=== PATIENT | female | born 1970 | race Caucasian/White ===

== ENCOUNTER 2017-03-08 22:34 | Inpatient (IN) ==
[2017-03-09 00:32] LABS: MANUAL DIFF NEEDED? NO
[2017-03-09 00:46] LABS: BASO% 0.6 % (0.0-0.8); EOS# 0.32 X1000 (0.0-0.7); EOS% 2.9 % (0.0-10.0); HEMATOCRIT 42.6 % (37.0-47.0); HEMOGLOBIN 13.9 g/dL (12.0-16.0); IMM GRAN# 0.02 X1000 (0.0-0.04); IMM GRAN% 0.2 % (0.0-0.5); LYMPH# 3.91 X1000 (1.2-3.4); LYMPH% 35.7 % (20.5-51.1); MCH 30.8 PG (27-31); MCHC 32.6 g/dL (33-37); MCV 94.5 FL (81-99); MONO# 0.89 X1000 (0.11-0.59); MONO% 8.1 % (1.7-9.3); MPV 11.2 FL (7.4-10.4); NEUT% 52.5 % (42.2-75.2); PLT 332 X1000 (130-400); RBC 4.51 XMIL (4.2-5.4)
[2017-03-09 00:58] LABS: INR 0.92 (0.86-1.15); PROTIME 12.7 Seconds (12.1-15.5)
[2017-03-09 01:10] LABS: AGAP 12; ALBUMIN 4.5 g/dL (3.5-5.0); ALKALINE PHOSPHATASE 91 U/L (32-104); BUN 6 mg/dL (8-22); CALCIUM 9.2 mg/dL (8.8-10.2); CHLORIDE 103 mmol/L (98-107); COSMO 274; GOT 37 U/L (10-30); GPT 23 U/L (10-36); MAGNESIUM 1.7 mg/dL (1.5-2.7); POTASSIUM 3.6 mmol/L (3.5-5.1); SODIUM 139 mmol/L (136-145); TCO2 25 mmol/L (25-35); TOTAL PROTEIN 7.3 g/dL (6.3-8.3)
[2017-03-09 01:15] LABS: BILIRUBIN URINE NEGATIVE (NEGATIVE); BLOOD URINE NEGATIVE (NEGATIVE); CLARITY CLEAR (CLEAR); COLOR YELLOW; GLUCOSE URINE NEGATIVE (NEGATIVE); LEUKOCYTES URINE NEGATIVE (NEGATIVE); NITRITE URINE NEGATIVE (NEGATIVE); PROTEIN URINE NEGATIVE (NEGATIVE); URINE SOURCE CLEAN CATCH; UROBILINOGEN URINE NORMAL
[2017-03-09 01:16] LABS: URINE CULTURE PL NEEDED? YES; URINE EPITHELIAL CELLS <10 /HPF (<10); URINE RBC <10 /HPF (<10); URINE WBC <10 /HPF (<10)
[2017-03-09 01:17] LABS: CK PROFILE 328 U/L (24-173)
[2017-03-09 01:18] LABS: UR AMPHETAMINES QUAL NONE DETECTED (NONE DETECT); UR BARBITUATES QUAL NONE DETECTED (NONE DETECT); UR BENZODIAZEPIN QUAL PRESUMPTIVE POSITIVE (NONE DETECT); UR CANNABINOIDS QUAL NONE DETECTED (NONE DETECT); UR COCAINE QUAL NONE DETECTED (NONE DETECT); UR MDMA QUAL NONE DETECTED (NONE DETECT); UR METHADONE QUAL NONE DETECTED (NONE DETECT); UR METHAMPHETAMINE QUAL NONE DETECTED (NONE DETECT); UR OPIATES QUAL NONE DETECTED (NONE DETECT); UR OXYCODONE QUAL NONE DETECTED (NONE DETECT); UR PCP QUAL NONE DETECTED (NONE DETECT); UR TCA QUAL NONE DETECTED (NONE DETECT)
[2017-03-09 02:02] LABS: CK INDEX 5.6 (0.0-2.5); CK-MB 18.27 ng/mL (0.0-5.0)
[2017-03-09] MEDS ORDERED: ZOFRAN IV PRN ×2 (02:42→16:16)
--- NOTE | 2017-03-09 02:53 | EKG Report ---
Test Performed on : 03/09/2017 00:19:51 AM Test Reason : CHEST PAIN Blood Pressure : / mmHG Vent. Rate : 067 BPM Atrial Rate : 067 BPM P-R Int : 154 ms QRS Dur : 092 ms QT Int : 398 ms P-R-T Axes : 052 043 081 degrees QTc Int : 420 ms Normal sinus rhythm. Normal ECG When compared with ECG of 14-MAY-2009 17:15, No significant change was found Unconfirmed Result
--- NOTE | 2017-03-09 03:02 | PROVIDER DOCUMENTATION ---
This chart was entered by Emily Terry Scribe, acting as scribe for Hector Link DO. HPI-Musculoskeletal Pain/Inj - GENERAL Chief Complaint: Generalized Pain Stated Complaint: WEAKNESS,ARM NUMBNESS/PAIN Time Seen by Provider: 03/09/17 00:04 Source: patient - HX OF PRESENT ILLNESS-MUSKULOSKELTAL Nature of Presenting Problem: 46 Yo F presents to the ER with the complain of generalized body pain X4 days. Pt also states numbness and pain to the R arm and R leg and CP. Denies any SOB. Quality of Pain: reports: other (generalized) Severity in ED: mild Onset/Duration: 4 days ago Timing: still present - FALL INJURY Location of Pain/Injury: reports: generalized (whole body) Pain Radiation: reports: arm(s) (R), legs (lower) (R) - LOWER EXTREMITY PAIN/INJURY Lower Extremities Pain: leg: right Associated Symptoms: reports: other (generalized pain) - UPPER EXTREMITY PAIN/INJURY Extremities Pain Location: arm: right Review of Systems - Adult - REVIEW OF SYSTEMS - ADULT Constitutional: denies: chills, fever Eyes: reports: no symptoms reported Ears, Nose, Mouth & Throat: denies: ear pain, throat pain Cardiovascular: reports: chest pain. denies: palpitations Respiratory: denies: cough, shortness of breath Gastrointestinal: denies: abdominal pain, nausea Genitourinary: reports: no symptoms reported Musculoskeletal: reports: see HPI, other (generalized body pain and chronic pain ) Integumentary: reports: no symptoms reported Neurological: reports: no symptoms reported Psychiatric: reports: no symptoms reported Endocrine: reports: no symptoms reported Hematologic/Lymphatic: reports: no symptoms reported Allergic/Immunologic: reports: no symptoms reported All Other Systems: Reviewed and Negative Past History - Adult - PAST MEDICAL HISTORY-ADULT Review of Records: reports: Old Records Reviewed, Nursing Assessment Review Major Childhood Illnesses: reports: denies history Cardiovascular: reports: denies history Respiratory: reports: denies history Gastrointestinal: reports: denies history Obstetrical/Gynecological: reports: uterine/ovarian cancer Genitourinary: reports: denies history Musculoskeletal: reports: chronic pain, intervertebral disc disease Neurological: reports: denies history Psychiatric: reports: anxiety Endocrine/Immune: reports: denies history Other Conditions: reports: denies history - PRIOR SURGERIES/PROCEDURES Surgical/Procedure History: reports: hysterectomy, tonsillectomy - PRIOR HOSPITALIZATIONS Prior Hospitalizations: reports: none - IMMUNIZATION STATUS Childhood Immunizations: UTD, See Nurse Assessment Flu Vaccine: See Nurse Assessment - FAMILY HISTORY Family History: reviewed, not pertinent - SOCIAL HISTORY Smoking: cigarettes, greater than 1 pack/day Provider spent 3-5 mins advising pt. on dangers of tobacco.: Discussed manners to quit use, and f/u contacts for add'l counseling. Physical Exam-Injury Related - Physical Exam-Injury Related Initial Vital Signs Reviewed: Yes General Appearance: appears well, alert Eyes: PERRL/EOMI, pink conjunctivae Head, Ears, Nose, Mouth & Throat: normal ENT inspection, TMs normal Neck: non-tender, full range of motion, supple Respiratory: no pleuratic chest pain, no respiratory distress Cardiovascular: normal peripheral pulses, regular rate, rhythm Back Exam: no CVA tenderness, no vertebral tenderness Integumentary: normal color, warm/dry Neurologic: grossly normal, no motor/sensory deficits Psych/Mental Status: normal mood/affect, normal thought content, normal thought process, oriented x 3 Progress - PLAN OF CARE/RESULTS Progress/Plan/Lab Results: Orders Category Date Time Status Admit - [facility] Routine AdmDCTranf 03/09/17 02:42 Ordered Activity - Strict Bedrest ORDERED Care 03/09/17 02:42 Inactive Call Admitting on Arrival AT ADMISSION Care 03/09/17 02:42 Inactive Cardiac Monitoring DIRECTED Care 03/09/17 00:05 Active Neurological Check Q4H Care 03/09/17 02:42 Active Saline Loc DIRECTED Care 03/09/17 02:42 Active Saline Loc NOW Care 03/09/17 00:05 Completed Vital Signs Order ARRIVAL TO ROOM Care 03/09/17 02:42 Active CHEST-2 VIEWS [RAD] Stat Exams 03/09/17 00:05 Completed HEAD W/O CONTRAST [CT] Stat Exams 03/09/17 00:06 Completed CBC WITH ELECTRONIC DIFF [HEME] Stat Lab 03/09/17 00:25 Completed CK PROFILE [SP CHEM] Stat Lab 03/09/17 00:25 Completed COMPREHENSIVE METABOLIC PANEL [CHEM] Stat Lab 03/09/17 00:25 Completed D-DIMER [address] [COAG] Stat Lab 03/09/17 00:25 Completed ETOH [ALCOHOL BLOOD] Stat Lab 03/09/17 00:25 Completed MAGNESIUM [CHEM] Stat Lab 03/09/17 00:25 Completed PRO B-NATRIURETIC PEPTIDE Stat Lab 03/09/17 00:25 Completed [address]IME WITH INR PL [COAG] Stat Lab 03/09/17 00:[address] [COAG] Stat Lab 03/09/17 00:25 Completed TROPONIN T Lab 03/09/17 05:35 Completed TROPONIN T Lab 03/09/17 13:10 Completed TROPONIN T Stat Lab 03/09/17 00:[address] W/POSS RFLX CULT [URINALYSIS] Stat Lab 03/09/17 00:25 Completed URINE CULTURE [RM] Routine Lab 03/09/17 01:16 Received URINE DRUG SCREEN [address] Stat Lab 03/09/17 00:25 Completed Ondansetron [Zofran] Med 03/09/17 02:42 Active 4 mg IV Q4H PRN PRN Oxygen Device Routine Oth 03/09/17 02:42 Completed Telemetry [OM.EQ] Routine Oth 03/09/17 02:42 Active Carotid Ultrasound Stat Ther 03/09/17 07:00 Completed EKG [EKG] Stat Ther 03/09/17 00:05 Draft Transfer/Admit Order [TRANSFER] Routine Transfer 03/09/17 02:44 Completed Result Diagrams: 03/09/17 00:25 03/09/17 00:25 - CT/MRI 1 CT Study: Head Impression: Normal CT Results: negative Head CT by Radiologist - CONSULTS/PCP/HOSPITALIST Notification #1 *Consult/PCP/Hospitalist*: Dr. Fisher Time Discussed: 02:41 Reason/Comments: discussed by Patient Departure - Departure Time of Disposition Decision: 02:41 DIAGNOSIS: Weakness Disposition: ADMITTED INPATIENT 09 Certified Medical Emergency: Emergent Condition: Stable This chart was documented by the indicated scribe, (Emily Terry Scribe) and accurately reflects the services I performed and decisions made by Nikolay hollingsworth Deepak K., DO, as attested by the provider's signature.
--- NOTE | 2017-03-09 09:32 | Diag Imaging Result Document ---
PROCEDURE NAME: HEAD W/O CONTRAST - 03/09/[address], 03/09/2017: A CT dose reduction protocol was used. COMPARISON: None. FINDINGS: The ventricles and sulci are normal in size and contour. There is no mass, hemorrhage, or evidence of acute ischemia. The bony calvaria is intact. The visualized paranasal sinuses and mastoid air cells are clear. IMPRESSION: Negative head CT. MTDD
--- NOTE | 2017-03-09 09:54 | Diag Imaging Result Document ---
PROCEDURE NAME: CERVICAL SPINE W/O CONTRAST - 03/09/2017 CT CERVICAL SPINE, 03/09/2017: A CT dose reduction protocol was used. COMPARISON: 07/21/2014. FINDINGS: Stable severe kyphotic malpositioning of the cervical spine. Stable severe multilevel degenerative disk disease, worst at C4-5, C5-6 and C6-7. Stable large disk bulge at C4-5 causing moderate central canal stenosis and some cord compression. No fracture or subluxation. IMPRESSION: Advanced cervical spondylosis and chronic malpositioning. No change from prior. [facility]
--- NOTE | 2017-03-09 11:27 | Diag Imaging Result Document ---
PROCEDURE NAME: CHEST-2 VIEWS - 03/09/2017 CHEST X-RAY 2 VIEWS, 03/09/2017: COMPARISON: None. FINDINGS: The lungs are normally expanded and clear. Heart size and mediastinal contours are normal. No pneumothorax or pleural effusion. IMPRESSION: Negative exam.
--- NOTE | 2017-03-09 12:16 | HISTORY AND PHYSICAL ---
CHIEF COMPLAINT: My right arm and right leg feel like they are numb and asleep. HISTORY OF PRESENT ILLNESS: This is a 46-year-old female with a prior history of degenerative disk disease, chronic neck and back pain, ovarian cancer, and tobacco use. She presented to the emergency room complaining of numbness and feeling like her right arm and right leg were asleep. The patient is very sleepy. It is difficult to engage in much conversation due to her being so sleepy. There is a family member at the bedside. So, history is taken from the old records as well as the family member assisting the patient. Evidently she fell at work within the last 4-5 days. She stated that she had left-sided pain but that over the last 3 days she began to have trouble with the right, having this numbness and tingling to her right arm and right leg. She said she had difficulty walking. At one time she said that she had to have assistance to walk into her job the last day that she worked. She was able to complete the 2 shifts that she was supposed to work this week and she stated she was able to do her job. She states that she has been told over the past 4-5 years that she has had significant disease in her spine especially her neck and that she needed a follow up, although she has never followed those instructions, stating she did not have the money nor the time to follow up. She did have a CT of the C-spine in July of 2014 which revealed extensive multilevel degenerative disk disease, most significant at C4-C5 where there is cord compression, although this is stable from a previous study of March 2014. She states at 1 time she was on Xanax and 2 other medications but she has not taken these in quite some time. I did ask her and the family member about her being so lethargic. Family member state that she has not been this way. She stated that one of friends gave her "a little orange piece of paper to put on my tongue and dissolve" because of her pain. This was sometime yesterday. I am unclear what relation it has to coming to the emergency room. CT of the head was performed which revealed no acute processes. Urine drug screen revealed benzodiazepines. PAST MEDICAL HISTORY: Uterine cancer, hypertension although she does not take medications, Crohn's, chronic back and neck pain. PAST SURGICAL HISTORY: Hysterectomy, tonsillectomy, and colon polyps removed. SOCIAL HISTORY: She smokes a pack of cigarettes a day. She denies alcohol or illicit drug use. She does have family members close that help assist in her care. ALLERGIES: Codeine, Toradol, Phenergan, and Ultram. HOME MEDICATIONS: Denies. REVIEW OF SYSTEMS: A 14 point review of systems is discussed with the patient with pertinent positives stated in the HPI. She denied chest pain, palpitations, syncope, dizziness, shortness of breath, cough, fever, chills, recent weight loss or weight gain, abdominal pain, nausea, vomiting, diarrhea, constipation, black or bloody vomitus, black or bloody stools, hematuria, dysuria. PHYSICAL EXAMINATION: GENERAL: This is a 46-year-old female who is lying in the bed, lethargic, in no distress. VITAL SIGNS: Blood pressure is 104/60 with a heart rate of 60, respirations 16 , temperature 97.9 degrees oral, with a room air saturation of 97%. HEENT: Head is normocephalic, atraumatic. Pupils are equal, round, react to light. EOMs are intact. NECK: Supple. Trachea midline. CARDIOVASCULAR: Regular rate and rhythm. S1, S2 appreciated. PULMONARY: Breath sounds are clear. No increased work of breathing noted. Chest does rise and fall symmetrically with respiration GASTROINTESTINAL: Abdomen is soft, nontender, nondistended. Bowel sounds in all 4 quadrants. BACK: No CVAT. No spine tenderness. EXTREMITIES: No clubbing or cyanosis. She does have some pretibial and pedal edema, trace. NEUROLOGIC: She is lethargic. She does wake to verbal stimuli as well as tactile stimuli. She is oriented to place, person, her birthday, although she does get the day and time of day confused. She has no facial droop. Forehead is spared. No tongue or uvula deviation. She has equal shoulder shrug. She has 5/5 muscle strength to left arm and left leg. She has 4/5 to right leg and 3/5 to right arm. [id number] is 4/5 on the left and 2/5 on the right. She states she is having trouble manipulating her right arm. DIAGNOSTICS: Labs: WBC is 10.9, with a hemoglobin 13.9, hematocrit 42.6, and platelets of 332,000. D-dimer is less than 0.22. Chemistry: Sodium is 139, potassium 3.6, BUN 6, creatinine 0.5, with a glucose of 74. CPK is 328 with a CK-MB of 18.27. Troponins are negative on multiple occasions. CT of the head reveals no acute processes. ASSESSMENT: 1. Right upper and lower extremity weakness. 2. Chronic back pain. 3. Known degenerative disk disease at C4-C5 with cord encroachment from a CT in 2013. 4. Rhabdomyolysis, mild. Presumed from a fall 3-4 days ago. 5. History of Crohn's. 6. Deep vein thrombosis prophylaxis. 7. Gastrointestinal prophylaxis. PLAN: She will be admitted to the hospital. We will repeat a CT scan of her cervical spine. At present she will remain NPO. We will continue with neuro checks. We will trend her CPK. For DVT prophylaxis will use SCDs as she has had a recent fall. At present, we will use Protonix to start with for GI prophylaxis. Further treatments pending hospital course. CT scan results were discussed with Dr Gillespie and Dr Villa. Dr Villa has been following the pt and states CT scan is stable at this time. Dictated by ELIAS Jain for Pan Fisher MD cc: ELIAS Jain MD [facility]
[2017-03-09] MEDS ORDERED: NS 1,000 ML IV SCH (12:46)
[2017-03-09] MEDS: NS 1,000 ML IV SCH (16:16)
[2017-03-09] MEDS ORDERED: TYLENOL PO PRN (16:16)
[2017-03-09] MEDS ORDERED: NICODERM PATCH ONE (17:04)
[2017-03-09] MEDS ORDERED: NICODERM PATCH TD ONE (17:23)
--- NOTE | 2017-03-09 17:53 | PROGRESS NOTE ---
DATE: 03/09/2017 SUBJECTIVE: She was admitted earlier this morning as noted in history of present illness. She was very somnolent, was difficult to arouse and keep awake. Currently, she is much more awake, alert. She is sitting up on the side of the bed. She admits to taking a friend's medication yesterday that was in some type of "strip form". She dissolved it on her tongue and had an empty flavor. She notes that helped her pain for several hours. Currently her pain is a little bit worse and it is back to its baseline. She notes she still smokes. Again, discussed with her the perils of smoking. She knows that she was told to follow up with her neck issue but she did not because she did not want to take off work. At this point, we will transfer her to the floor. We will use Solu-Medrol, as she certainly may have some mild cord compression. She is noted to have weak movement of her left hand with good movement of her left upper arm and forearm. She is still having some pain in her leg from her fall. She is much more awake, alert, and oriented. We will advance her diet. Recheck her labs in the a.m. We will get an MRI of her neck in the a.m. cc: Pan Fisher MD
[2017-03-09] MEDS: SOLU-MEDROL IV SCH (19:47)
[2017-03-09] MEDS: NORCO-7.5 PO PRN (22:47)
--- NOTE | 2017-03-10 02:45 | PROGRESS NOTE ---
DATE: 03/09/2017 ADDENDUM: The patient is threatening to just leave the hospital. Discussed with her that she certainly needs to take some IV fluid, some IV Solu-Medrol to see if we can alleviate some of her current neurologic symptoms in her right hand. Discussed with her that instead of going outside to smoke we certainly can try a nicotine patch. Patient is unfortunately adamant that the same nurse has been mean to her since she got here yesterday. The patient in the same room across the curtain from her is shaking her head in complete disagreement at that statement with Ms Langford that although that may be somewhat accurate that it would be impossible for the same nurse to have been mean to her since she got here yesterday as she arrived to the hospital on the 8th in the evening and is currently the 9th at 5 p.m. which means she has at least had 2 separate nurses and not the same 1 for the past 18+ hours. Did discuss with her that if she chooses to leave that would be against medical advice. Discussed her that she certainly needs an MRI on her neck to make sure that she does not have any further cord compression as she has failed to follow up in the past regarding this. If the MRI is stable then will consult physical therapy [facility]. cc: Pan Fisher MD
[2017-03-10] MEDS: SOLU-MEDROL IV SCH ×3 (06:07→21:40)
[2017-03-10] MEDS: NORCO-7.5 PO PRN ×3 (06:08→21:41)
[2017-03-10 07:01] LABS: HEMATOCRIT 38.9 % (37.0-47.0); HEMOGLOBIN 12.5 g/dL (12.0-16.0); MCH 30.7 PG (27-31); MCHC 32.1 g/dL (33-37); MCV 95.6 FL (81-99); MPV 11.6 FL (7.4-10.4); RBC 4.07 XMIL (4.2-5.4)
[2017-03-10 07:37] LABS: AGAP 12; ALBUMIN 3.8 g/dL (3.5-5.0); ALKALINE PHOSPHATASE 81 U/L (32-104); BUN 7 mg/dL (8-22); CALCIUM 8.8 mg/dL (8.8-10.2); CHLORIDE 105 mmol/L (98-107); CK PROFILE 125 U/L (24-173); COSMO 278; GOT 23 U/L (10-30); GPT 21 U/L (10-36); MAGNESIUM 1.5 mg/dL (1.5-2.7); POTASSIUM 3.3 mmol/L (3.5-5.1); SODIUM 138 mmol/L (136-145); TCO2 21 mmol/L (25-35); TOTAL PROTEIN 6.4 g/dL (6.3-8.3)
[2017-03-10] MEDS: NS 1,000 ML IV SCH (08:31)
[2017-03-10] MEDS: NICODERM PATCH TD SCH (13:32)
[2017-03-10] MEDS: XANAX PO SCH ×2 (13:32→21:41)
--- NOTE | 2017-03-10 15:14 | Diag Imaging Result Document ---
PROCEDURE NAME: MRI CERVICAL SPINE W/O CONTRAS - 03/10/2017 MRI OF THE CERVICAL SPINE: FINDINGS: There is degenerative disk disease and posterior disk bulge at the C4-5, 5-6, and 6-7 levels. There is no evidence of bone marrow edema. At the C2-3, level there is slight narrowing of the left foramen. At C3-4, there is apparent foraminal stenosis bilaterally. At C4-5, there is osteophyte formation which impinges on the cord producing a moderate to severe spinal stenosis. At the C5-6 level, there is mild spinal and bilateral foraminal stenosis. At C6-7, there may be mild foraminal stenosis, but there is no spinal stenosis. At C7-T1, there is no evidence of spinal stenosis or definite foraminal stenosis. IMPRESSION: Degenerative disk changes with multilevel foraminal and spinal stenosis, the latter at the C4-5 level.
--- NOTE | 2017-03-10 16:02 | Extremity Venous Study ---
PROCEDURE NAME: Carotid Ultrasound - 03/09/2017 CAROTID FLOW STUDIES: FINDINGS: There is some intimal thickening in the right carotid system. The peak systolic velocity in the right internal carotid artery is 121 cm/sec, and the peak diastolic velocity is 45 cm/sec. The right internal to common carotid artery systolic velocity ratio is 1.09. The peak velocity suggest 40%-59% stenosis in the right internal carotid artery. The systolic velocity ratios suggests less than 40% stenosis in the right internal carotid artery. There is some intimal thickening in the left carotid system. Maximum systolic velocity in the left internal carotid artery is 119 cm/sec, maximal diastolic velocity is 44 cm/sec. The left internal to common carotid artery ratio is 1.18. The peak velocity suggest 40%-59% stenosis in the left internal carotid artery. The systolic velocity ratio suggest less than 40% stenosis in the left internal carotid artery. The bilateral vertebral arteries demonstrate antegrade flow. IMPRESSION: Equivocal findings of 40%-59% stenosis in the bilateral internal carotid arteries as described above. There is no evidence of hemodynamically significant stenosis in the right nor the left internal carotid artery.
[2017-03-11] MEDS: SOLU-MEDROL IV SCH ×3 (00:37→09:12)
[2017-03-11] MEDS: NORCO-7.5 PO PRN ×3 (02:46→14:04)
[2017-03-11] MEDS: XANAX PO SCH ×2 (06:08→14:04)
[2017-03-11] MEDS: NICODERM PATCH TD SCH (09:12)
--- NOTE | 2017-03-11 09:14 | PROGRESS NOTE ---
DATE: 03/10/2017 SUBJECTIVE: The patient is still having some pain and swelling in her right hand. Denies any other numbness anywhere else. Denies any nausea or vomiting. Denies any chest pain. Denies any dysuria or frequency. Denies any hesitancy. Denies any headaches or blurry vision. OBJECTIVE: Vital Signs: Reviewed. Temperature 98, pulse 77, respiratory rate 18, BP 132/84, sat 99% on room air. General: Patient is awake, alert, oriented. She is in no current respiratory distress. HEENT: Normocephalic. Neck: Supple. Cardiovascular: Regular rate. Chest: Relatively clear. Abdomen: Soft. Extremities: She is noted to move all 4 extremities well, although, she has minimal to no movement of her right hand. She has full movement of her right upper arm, right forearm, right elbow, and can move her wrist to some degree. LABS: Potassium 3.3. Glucose 184. ASSESSMENT: 1. Leukocytosis, resolved. WBCs 10.9 on admit, currently 7.17. 2. Hypokalemia. 3. Mild hyperglycemia. 4. Elevated CPK, currently back to normal at 125. 5. Elevated TSH. ASSESSMENT: 1. Weakness of her right hand. This certainly appears to be more secondary to trauma and edema, rather than from an acute stroke. 2. Chronic back pain. 3. Known degenerative felix disease with C4-C5 foraminal and spinal stenosis. 4. Known history of Crohn's. 5. Rhabdomyolysis, resolved. PLAN: We will check an MRI of her neck today to ascertain if she has any spinal cord compression that could be causing the symptoms. 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 Discussed with patient again the perils smoking, as well as, the ways to stop. Hopefully, patient can be discharged home in the next 1 to 2 days with an outpatient rehab. cc: Pan Fisher MD
[2017-03-11 15:37] VITALS: BP 151/84
[2017-03-11] MEDS ORDERED: NEURONTIN PO SCH (17:00)
--- NOTE | 2017-03-11 18:52 | DISCHARGE SUMMARY ---
ADMISSION DATE: 03/09/2017 DISCHARGE DATE: 03/11/2017 ADMISSION DIAGNOSES: 1. Right upper and lower extremity secondary to cervical radiculomyelopathy. 2. Chronic back pain. 3. Known degenerative disc disease at C4-5 with cord encroachment on a CT in 2013. 4. Mild rhabdomyolysis presumed to be from a fall 3-4 days prior to arriving. DISCHARGE DIAGNOSES: 1. Weakness of right hand secondary to trauma. 2. Chronic back pain. 3. Known degenerative disc disease with C4-5 foraminal and spinal stenosis. 4. Rhabdomyolysis, resolved. SUMMARY OF FINDINGS: This is a 46-year-old female who presented to the emergency room complaining of numbness and feeling like her right arm and right leg were asleep. She was difficult to engage in a conversation due to being so sleepy. History was taken from old records and family member assisting the patient. She evidently fell at work 4-5 days prior to arriving. She stated that she had left-sided pain but that over the last 3 days she began to have trouble with the right having numbness and tingling in her right arm and right leg, and difficulty walking. She states that she had to have assistance to walk into her job the last day that she worked. She has known multilevel degenerative disc disease most significant at C4-5 where there is some cord compression. This is stable from a previous study of March 2014. For her lethargy she states, one of her friends had given her "a little orange piece of paper" to put on her tongue and dissolve because of her pain, and that was given to her on the day prior to arrival which is most likely what caused her lethargy, and her urine drug screen was positive for benzodiazepines. She was admitted. We did serial neuro checks. We did a cervical spine MRI yesterday that showed degenerative disc changes with multilevel foraminal and spinal stenosis, the latter at the C4-5 level and again this has been present since 2013. It is felt today that she can safely be discharged home. DISCHARGE MEDICATIONS: 1. Decadron 4 mg p.o. b.i.d. #10 with no refills. 2. Xanax 0.5 mg p.o. q.8 hours #15 with no refills. 3. Nicotine patch daily #30 with no refills. 4. Gabapentin 100 mg p.o. t.i.d. #90 with no refills. FOLLOWUP: She will need to follow up with Neurosurgery in [place]. Discharge instructions were reviewed with the patient and she verbalized understanding. DISCHARGE TIME: 35 minutes. Dictated by ELIAS Lentz for Joel Pruitt MD cc: ELIAS Lentz MD [facility]
[2017-03-11] MEDS ORDERED: DECADRON PO SCH (21:00)
== END 2017-03-11 16:35 | disposition home or self-care (01) ==
LOC: P.ED 22:34 → SUATTDRO 03-09 04:54 → P.EDIPHOLD 03-09 04:54 → P.ICU 03-09 15:19 → P.EDIPHOLD 03-09 16:50 → P.MEDSURG 03-09 18:41
PROVIDERS: ATTEND Internal Medicine

== ENCOUNTER 2017-05-23 15:03 | Inpatient (IN) ==
--- NOTE | 2017-05-23 16:08 | PROVIDER DOCUMENTATION ---
HPI-Head Injury - General Chief Complaint: Headache Stated Complaint: NICHOLAS,VISION BAD Time Seen by Provider: 05/23/17 15:26 Source: patient Allergies/Adverse Reactions: Patient Allergies Allergy/AdvReac Type Severity Reaction Status Date / Time codeine Allergy Mild ITCHING Verified 05/23/17 16:58 ketorolac tromethamine * Allergy Mild ITCHING Verified 05/23/17 16:58 [From Toradol] promethazine HCl * Allergy Mild ITCHING Verified 05/23/17 16:58 [From Phenergan] tramadol HCl * [From Ultram] Allergy Mild ITCHING Verified 05/23/17 16:58 Home Medications: Home Medication List Medication Instructions Recorded Confirmed Last Taken Type Alprazolam [Xanax] 0.5 mg PO Q8H #15 tablet 03/11/17 06/01/17 05/22/17 12:00 Rx ATORVAstatin [Lipitor] 40 mg PO QHS #30 tablet 05/29/17 06/01/17 Unknown Rx Clopidogrel [Plavix] 75 mg PO DAILY #30 tablet 05/29/17 06/01/17 Unknown Rx Hydrocodone/APAP 5 mg/325 mg 1 each PO Q4H PRN #30 tablet 05/29/17 06/01/17 Unknown Rx [[place]-5] Amlodipine [Norvasc] 5 mg PO DAILY #30 tablet 06/02/17 Unknown Rx - History of Present Illness-Head Injury Nature of Presenting Problem: 47 y/o WF presents to the ED with c/o NICHOLAS, head injury, vision changes x 2 days. Pt states fell and hit her L frontal lobe on a dresser 2 nights ago with no LOC, but states that she was disoriented for 20 minutes. States NICHOLAS worse yesterday, so she was seen at [facility] and diagnosed with CVA, but prior to transport to higher care facility, signed an AMA to go home. States vision is blurry in both eyes, worse on L. Denies any other sxs. Review of Systems - Adult - REVIEW OF SYSTEMS - ADULT Constitutional: reports: no symptoms reported. denies: chills, fever Eyes: reports: see HPI, blurred vision. denies: double vision Ears, Nose, Mouth & Throat: reports: no symptoms reported. denies: ear pain, nose pain Cardiovascular: reports: no symptoms reported. denies: chest pain, palpitations Respiratory: reports: no symptoms reported. denies: dyspnea on exertion, shortness of breath Gastrointestinal: reports: no symptoms reported. denies: nausea, vomiting Genitourinary: reports: no symptoms reported. denies: dysuria, frequency Musculoskeletal: reports: no symptoms reported. denies: joint pain, joint swelling Integumentary: reports: no symptoms reported. denies: nail changes, rash Neurological: reports: headache/migraines. denies: numbness, paresthesia Psychiatric: reports: no symptoms reported Endocrine: reports: no symptoms reported. denies: cold intolerance, heat intolerance Hematologic/Lymphatic: reports: no symptoms reported. denies: easy bruising, prolonged bleeding Allergic/Immunologic: reports: no symptoms reported All Other Systems: Reviewed and Negative Past History - Adult - PAST MEDICAL HISTORY-ADULT Review of Records: reports: Nursing Assessment Review, Medications Reviewed Major Childhood Illnesses: reports: denies history Cardiovascular: reports: denies history Respiratory: reports: denies history Gastrointestinal: reports: denies history Obstetrical/Gynecological: reports: uterine/ovarian cancer Genitourinary: reports: denies history Musculoskeletal: reports: chronic pain, intervertebral disc disease Neurological: reports: denies history Psychiatric: reports: anxiety Endocrine/Immune: reports: denies history Other Conditions: reports: denies history - PRIOR SURGERIES/PROCEDURES Surgical/Procedure History: reports: hysterectomy, tonsillectomy - PRIOR HOSPITALIZATIONS Prior Hospitalizations: reports: none - IMMUNIZATION STATUS Childhood Immunizations: UTD, See Nurse Assessment Flu Vaccine: See Nurse Assessment - FAMILY HISTORY Family History: reviewed, not pertinent - SOCIAL HISTORY Smoking: cigarettes, greater than 1 pack/day Provider spent 3-5 mins advising pt. on dangers of tobacco.: Discussed manners to quit use, and f/u contacts for add'l counseling. Physical Exam- Neurological - Physical Exam-Neuro Initial Vital Signs Reviewed: Yes General Appearance: alert, mild distress Eye Exam: bilateral eye: normal inspection, PERRL, abnormal EOM (pt won't follow finger) HENMT: normocephalic/atraumatic Head Injury: no evidence of injury Neck: supple, normal inspection. negative: carotid bruit Respiratory: lungs clear, normal breath sounds. negative: crackles, rales, rhonchi, stridor, wheezing Cardiovascular: regular rate, rhythm. negative: bradycardia, tachycardia Extremity: normal range of motion latex spooler Exam: normal hearing, normal speech, PERRL. negative: abnormal eye position , abnormal pupil position, abnormal speech, facial asymmetry, facial droop, facial paresthesias, facial weakness, hearing deficit (R), hearing deficit (L), tongue deviation to R, tongue deviation to L Motor/Sensory: negative: weak motor strength RUE, weak motor strength LUE, weak motor strength RLE, weak motor strength LLE Neurologic: abnormal latex spooler II-XII (EOM not able to be evaluated). negative: aphasia, facial droop, focal weakness, motor weakness, sensory deficit Integumentary: normal color Psych/Mental Status: normal mood/affect, oriented x 3 Progress - PLAN OF CARE/RESULTS Progress/Plan/Lab Results: Orders Category [facility] Routine AdmDCTranf 05/23/17 18:39 Ordered Activity - Up with Assistance ORDERED Care 05/23/17 18:39 Active Intake and Output-Strict ORDERED Care 05/23/17 18:39 Active Nursing- MD Consult Request ROUTINE Care 05/23/17 18:45 Completed Vital Signs Order Q 8-HR ASSESS Care 05/23/17 18:39 Active Z-Document. for Tele Applied ORDERED Care 05/23/17 18:39 Completed Physician/Provider Consults Routine Cons 05/26/17 07:00 Ordered HEAD/C-SPINE W/O CONTRAST [CT] Stat Exams 05/23/17 15:59 Completed ALCOHOL BLOOD Stat Lab 05/23/17 16:43 Completed CBC WITH DIFF [HEME] Routine Lab 05/24/17 06:25 Completed CBC WITH ELECTRONIC DIFF [HEME] Stat Lab 05/23/17 16:43 Completed CK PROFILE [SP CHEM] Stat Lab 05/23/17 16:43 Completed COMPREHENSIVE METABOLIC PANEL [CHEM] Stat Lab 05/23/17 16:43 Completed COMPREHENSIVE METABOLIC PANEL [CHEM] Stat Lab 05/24/17 06:25 Completed MAGNESIUM [CHEM] Routine Lab 05/24/17 06:25 Completed PROTIME WITH INR [COAG] Stat Lab 05/23/17 16:43 Completed PTT [COAG] Stat Lab 05/23/17 16:43 Completed TROPONIN T Routine Lab 05/24/17 06:25 Completed TROPONIN T Stat Lab 05/23/17 16:43 Completed TSH Routine Lab 05/24/17 06:25 Completed URINALYSIS W/POSS RFLX CULT-1 [URINALYSIS] Stat Lab 05/23/17 16:43 Completed URINE DRUG SCREEN Stat Lab 05/23/17 16:43 Completed ATORVAstatin [Lipitor] Med 05/23/17 21:00 Discontinued 40 mg PO QHS Acetaminophen [Tylenol] Med 05/23/17 18:39 Discontinued 650 mg PO Q6H PRN PRN Alprazolam [Xanax] Med 05/23/17 21:35 Discontinued 0.5 mg PO Q8H Aspirin Med 05/24/17 09:00 Discontinued 81 mg PO DAILY Clopidogrel [Plavix] Med 05/23/17 18:42 Discontinued 75 mg PO NOW ONE LISINOpril [Prinivil] Med 05/23/17 21:35 Discontinued 20 mg PO HS Ondansetron [Zofran] Med 05/23/17 18:39 Discontinued 4 mg IV Q4H PRN PRN Carotid Ultrasound Routine Ther 05/23/17 18:39 Completed Echo Spec/Color Dop W/O Contra Routine Ther 05/23/17 18:39 Completed Physical Therapy Eval/Treatment [OM.PT] Routine Ther 05/23/17 18:39 Active Transfer/Admit Order [TRANSFER] Routine Transfer 05/23/17 18:38 Completed Discussed pt with Dr. Harry; Dr. Harry at bedside and agrees with consult to stroke Result Diagrams: 05/25/17 06:31 05/26/17 06:21 - CT/MRI 1 CT Study: Cervical Spine, Head Impression: Discussed w/Radiology (Dr. Daugherty called at 1702 hours with report of recent R occipital lobe CVA- approximately 24-48 hours old.) - CONSULTS/PCP/HOSPITALIST Notification #1 *Consult/PCP/Hospitalist*: [facility] Time Discussed: 17:19 Reason/Comments: R occipital lobe Consult Disposition: other (will have neuro call back) #2 Consult: Dr. [facility] Time Discussed: 17:31 Reason/Comments: recent R occipital CVA Consult Disposition: other (admit to -[facility] and get carotid doppler, lipid profile. Start ASA and lovenox; do not start TPA.) #3 Consult: [facility] Time Discussed: 17:43 Reason/Comments: R occipital CVA Consult Disposition: Admit Departure - Departure Date of Disposition Decision: 05/23/17 Time of Disposition Decision: 17:17 DIAGNOSIS: CVA (cerebral vascular accident) Qualifiers: CVA mechanism: unspecified Qualified Code(s): I63.9 - Cerebral infarction, unspecified Disposition: ADMITTED INPATIENT 09 Certified Medical Emergency: Emergent Condition: Stable - Critical Care Note This patient required my direct & personal management of CC.: No Attestation - Physician/ VIKTOR Attestation Patient care was provided by Advanced Practice Provider:: Yes Advanced Practice Provider:: Krissy Leyva Advanced Practice Provider documentation review:: The Mid-level provider documentation, treatment plan and medical decision making was reviewed by the physician who agrees with all treatment and medical decision making by the MLP.
[2017-05-23 16:55] LABS: MANUAL DIFF NEEDED? NO; URINE CULTURE NEEDED? NO; URINE MICRO REVIEW NEEDED? NO; URINE SOURCE CLEAN CATCH
[2017-05-23 17:00] LABS: BASO% 0.5 % (0.0-0.8); EOS# 0.25 X1000 (0.0-0.7); EOS% 2.7 % (0.0-10.0); HEMATOCRIT 42.6 % (37.0-47.0); HEMOGLOBIN 14.2 g/dL (12.0-16.0); LYMPH% 39.4 % (20.5-51.1); MCH 31.1 PG (27-31); MCHC 33.3 g/dL (33-37); MCV 93.2 FL (81-99); MONO# 0.61 X1000 (0.11-0.59); MONO% 6.5 % (1.7-9.3); MPV 11.1 FL (7.4-10.4); NEUT% 50.9 % (42.2-75.2); PLT 342 X1000 (130-400); RBC 4.57 XMIL (4.2-5.4)
[2017-05-23 17:01] LABS: BILIRUBIN URINE NEGATIVE (NEGATIVE); BLOOD URINE NEGATIVE (NEGATIVE); COLOR STRAW; GLUCOSE URINE NEGATIVE (NEGATIVE); LEUKOCYTES URINE NEGATIVE (NEGATIVE); NITRITE URINE NEGATIVE (NEGATIVE); PH URINE 6.5; PROTEIN URINE NEGATIVE (NEGATIVE); SP GRAVITY URINE 1.001; TURBIDITY URINE CLEAR (CLEAR); UROBILINOGEN URINE NORMAL (NORMAL)
--- NOTE | 2017-05-23 17:01 | Diag Imaging Result Doc PS360 ---
HEAD/C-SPINE W/O CONTRAST - 05/23/2017 INDICATION: NICHOLAS, vision changes, head injury TECHNIQUE: A CT dose reduction protocol was used. COMPARISON: 03/09/2017 FINDINGS: Head CT: There is a well-defined hypodensity of the medial and posterior right occipital lobe. No mass effect or hemorrhage. No other changes from prior. Cervical spine: There is stable reversal of the normal cervical lordosis and stable multilevel degenerative disc disease. No fracture or subluxation. No changes from prior. IMPRESSION: 1. Recent infarction in the right occipital lobe, in the posterior cerebral artery territory. 2. Advanced degeneration of the cervical spine stable from prior. 3. Findings were immediately called to the patient's healthcare provider. Electronically signed by Neil Daugherty 05/23/2017 4:58 PM
[2017-05-23 17:03] LABS: UR EPITHELIAL CELLS <10 /HPF (<10); URINE BACTERIA NEGATIVE /HPF; URINE RBC <10 /HPF (<10); URINE WBC <10 /HPF (<10)
[2017-05-23 17:10] LABS: INR 1.01; PROTIME 10.6 Seconds (9.2-11.7); PTT 26.8 Seconds (22.0-36.0)
[2017-05-23 17:24] LABS: AGAP 12; ALBUMIN 4.2 g/dL (3.5-5.0); ALKALINE PHOSPHATASE 96 U/L (32-104); BUN 4 mg/dL (8-22); CALCIUM 9.3 mg/dL (8.8-10.2); CHLORIDE 105 mmol/L (98-107); CK PROFILE 304 U/L (24-173); COSMO 283; GOT 17 U/L (10-30); GPT 10 U/L (10-36); SODIUM 144 mmol/L (136-145); TCO2 27 mmol/L (25-35); TOTAL BILIRUBIN < 0.10 mg/dL (0.20-1.00); TOTAL PROTEIN 7.1 g/dL (6.3-8.3)
[2017-05-23 17:35] LABS: UR AMPHETAMINES QUAL NONE DETECTED (NONE DETECT); UR BARBITUATES QUAL NONE DETECTED (NONE DETECT); UR BENZODIAZEPIN QUAL PRESUMPTIVE POSITIVE (NONE DETECT); UR CANNABINOIDS QUAL NONE DETECTED (NONE DETECT); UR COCAINE QUAL NONE DETECTED (NONE DETECT); UR METHADONE QUAL NONE DETECTED (NONE DETECT); UR OPIATES QUAL NONE DETECTED (NONE DETECT); UR OXYCODONE QUAL NONE DETECTED (NONE DETECT); UR PCP QUAL NONE DETECTED (NONE DETECT)
[2017-05-23 17:38] LABS: CK INDEX 2.7 (0.0-2.5); CK-MB 8.28 ng/mL (0.0-5.0)
[2017-05-23] MEDS ORDERED: PLAVIX PO ONE (18:42)
--- NOTE | 2017-05-23 20:26 | HISTORY AND PHYSICAL ---
CHIEF COMPLAINT: Right hand weakness and visual problems. HISTORY OF PRESENT ILLNESS: A 47-year-old female with a past medical history of uterine cancer, hypertension, Crohn's, chronic back pain and neck pain discharged from another hospital, [facility] secondary to right hand weakness secondary to a fall, probably history of TIA, ovarian cancer, tobacco abuse, came to the emergency department today because of worsening of symptoms. As per the patient she went to the emergency department last Friday and she also states that she had a fall last Friday. She is complaining of headache, visual changes for the past 2 days. Apparently, also she fell and hit her forehead on a dresser a couple days ago and as per the patient, she was disoriented for about 20 minutes after that. Apparently she went to the emergency department at [place] and she was diagnosed with CVA but prior to transport to higher care facility she signed AMA and went home. This patient has blurry vision in both eyes and is worse on the left side. We did a CT scan of the head today 05/23/2017 that showed a recent infarction in the right occipital area, in the posterior cerebral artery territory. This patient will be admitted for monitoring. We will consult Neurology department. We will ask for an MRI of the head, echocardiogram and carotic ultrasound. We will monitor the blood pressure and we will put this patient on statins, aspirin and Plavix. PAST MEDICAL HISTORY: Ovarian cancer, hypertension, Crohn disease, chronic back and neck pain, apparently rhabdomyolysis, degenerative disease at the level of C4-C5. REVIEW OF SYSTEMS: All negative except as per HPI. PAST SURGICAL HISTORY: Hysterectomy, tonsillectomy and colon polyps removed. ALLERGIES: Codeine, Toradol, Phenergan and Ultram. SOCIAL HISTORY: She is still smoking but denies alcohol or drugs. HOME MEDICATION: She was discharged 2 months ago with Xanax 0.5 mg p.o. q.8 hours and gabapentin 100 mg p.o. t.i.d. PHYSICAL EXAM: VITAL SIGNS: Pulse 57, respiratory rate 20, blood pressure 141/81, oxygen saturation 99 on room air. HEENT: Head normocephalic. No trauma. PERRLA. NECK: Supple. No JVD. No masses. Central trachea. CHEST: Clear to auscultation. No wheezing. No rales. CARDIOVASCULAR: RRR. No murmurs. EXTREMITIES: No edema. No clubbing. No cyanosis. NEUROLOGICAL: The patient is alert and oriented x3. She has right hand weakness around 4/5. She is able to see and follow my fingers with both eyes and read letters at distance. But as per the patient, she sees blurry. LABORATORY: WBC 9.4, hemoglobin 14.2, hematocrit 42.6, platelets 342,000. Sodium 144, potassium 4, chloride 105, bicarbonate 27, BUN 4, creatinine 0.7, glucose 83, calcium 9.3, AST 17, ALT 10, alkaline phosphatase 96. ASSESSMENT AND PLAN: 1. Right occipital lobe stroke. We will put this patient on aspirin, Plavix and statins. We will monitor this patient with telemetry. We will order also an MRI, a carotid ultrasound and an echocardiogram and neurology has been consulted. 2. Chronic back pain. We will put this patient on pain medications p.r.n. 3. History of ovarian cancer. Aware. 4. Hypertension. I will put this patient on lisinopril 20 and will monitor the blood pressure. 5. Anxiety. I will continue with her Xanax 0.5 mg p.o. q.8 hours. 6. History of Crohn disease. Aware. 7. Tobacco abuse. This patient has been highly advised against tobacco use. I will continue with daily cessation education. 8. Deep vein thrombosis prophylaxis with Lovenox. cc: Donn Montesinos MD
[2017-05-23] MEDS ORDERED: PRINIVIL PO SCH (21:35)
[2017-05-23] MEDS: LIPITOR PO SCH (22:19)
[2017-05-23] MEDS: XANAX PO SCH (22:21)
[2017-05-24] MEDS: TYLENOL PO PRN ×2 (01:39→22:25)
[2017-05-24 06:43] LABS: MANUAL DIFF NEEDED? NO
[2017-05-24] MEDS: XANAX PO SCH ×2 (06:46→18:03)
[2017-05-24 06:50] LABS: BASO% 0.6 % (0.0-0.8); EOS# 0.19 X1000 (0.0-0.7); EOS% 2.7 % (0.0-10.0); HEMATOCRIT 40.4 % (37.0-47.0); HEMOGLOBIN 13.4 g/dL (12.0-16.0); LYMPH# 3.22 X1000 (1.2-3.4); LYMPH% 46.1 % (20.5-51.1); MCH 31.1 PG (27-31); MCHC 33.2 g/dL (33-37); MCV 93.7 FL (81-99); MONO# 0.52 X1000 (0.11-0.59); MONO% 7.4 % (1.7-9.3); NEUT% 43.2 % (42.2-75.2); PLT 347 X1000 (130-400); RBC 4.31 XMIL (4.2-5.4)
[2017-05-24 07:08] LABS: AGAP 12; ALBUMIN 3.6 g/dL (3.5-5.0); ALKALINE PHOSPHATASE 86 U/L (32-104); BUN 6 mg/dL (8-22); CALCIUM 8.9 mg/dL (8.8-10.2); CHLORIDE 109 mmol/L (98-107); COSMO 287; GOT 16 U/L (10-30); GPT 7 U/L (10-36); MAGNESIUM 1.8 mg/dL (1.5-2.7); POTASSIUM 3.6 mmol/L (3.5-5.1); SODIUM 146 mmol/L (136-145); TCO2 25 mmol/L (25-35); TOTAL BILIRUBIN 0.18 mg/dL (0.20-1.00); TOTAL PROTEIN 6.4 g/dL (6.3-8.3)
[2017-05-24] MEDS: ASPIRIN PO SCH (10:20)
[2017-05-24] MEDS: NICODERM PATCH TD SCH (12:40)
--- NOTE | 2017-05-24 12:59 | PROGRESS NOTE ---
DATE: 05/24/2017 SUBJECTIVE: This patient states that she is feeling about the same. In my physical, I do not see any big changes. She is a little bit somnolent but this is likely secondary to medications. She denies nausea, vomiting, diarrhea, constipation. No chest pain. No shortness of breath. OBJECTIVE: Vital Signs: Temperature 97.8 degrees, pulse 47, respiratory rate 13 blood pressure 90/50. Oxygen saturation 96 on room air. HEENT: Head normocephalic. No trauma. PERRLA. Neck: Supple. No JVD. No masses. Central trachea. Chest: Clear to auscultation. No wheezing. No rales. Cardiovascular: RRR, bradycardic. Abdomen: Soft, nontender, nondistended. No hepatosplenomegaly. Extremities: No edema. No clubbing. No cyanosis. Neurological: The patient is alert and oriented x3. No focal neurological deficits. LABORATORY: WBC 6.9, hemoglobin 13.4, hematocrit 40.4, platelet 347,000. Sodium 146, potassium 3.6, chloride 109, bicarbonate 25, BUN 6, creatinine 0.6, glucose 86, calcium 8.9, magnesium 1.8. ASSESSMENT AND PLAN: 1. Right occipital lobe stroke. I will continue with the same management for now. She is on aspirin, Plavix and statins. I will stop the blood pressure medication because her blood pressure has been running low. 2. Chronic back pain. Continue with pain medication p.r.n. 3. History of ovarian cancer. Aware. 4. Hypertension. I removed her lisinopril because this patient's blood pressure has been low. We will monitor. 5. Bradycardia without symptoms. We will monitor. 6. Anxiety. Continue with Xanax but now twice a day. 7. History of Crohn disease. Aware. 8. Tobacco abuse. This patient has been highly advised against tobacco abuse. I will continue with daily cessation education. I will use a nicotine patch today. 9. Deep vein thrombosis prophylaxis with Lovenox. cc: Donn Montesinos MD
--- NOTE | 2017-05-24 17:41 | ECHO REPORT ---
ORDER DATE: 05/23/2017 INTERPRETING PHYSICIAN: Dr. Marina REQUESTING PHYSICIAN: CLINICAL INDICATIONS: A 47-year-old female with uterine cancer, tobacco abuse, hypertension, stroke. M-MODE MEASUREMENTS: Right ventricle: 3.1 cm. Left ventricle end diastole: 4.6 cm. Left ventricle end systole: 2.8 cm. Posterior wall: 0.9 cm. Interventricular septum: 0.9 cm. Left atrium: 3.5 cm. Aortic root: 2.9 cm. SUMMARY OF 2-DIMENSIONAL IMAGING: The left ventricular function is normal. Ejection fraction 75%. The ventricular chamber is mildly enlarged. The right ventricle is also at the upper limits of normal. The aortic valve looks normal. Color flow mapping unremarkable. The mitral valve looks normal. Color flow mapping indicates a mild degree of regurgitation. Pulse wave Doppler of mitral inflow is normal. Tissue Doppler of septal and lateral mitral annulus averages 14 cm per second. Pulmonary venous flow is normal. There is no diastolic dysfunction. The left atrium is probably mildly enlarged. The right atrium also appears to be mildly enlarged. The tricuspid valve looks normal. Color flow mapping indicates a mild degree of regurgitation. Pulmonary pressure estimated at 32 mmHg. The pulmonic valve looks normal. Color flow mapping indicates a mild degree of regurgitation. There is no pericardial effusion, masses or thrombus. IMPRESSION: In summary, this study shows: 1. Normal left ventricular systolic function. 2. Very mild degree of mitral, tricuspid, and pulmonic regurgitation. 3. Borderline elevation of pulmonary pressure. 4. No diastolic dysfunction. Clinical correlation recommended. cc: MD Donn Gold MD
--- NOTE | 2017-05-24 20:49 | Carotid Study ---
DATE: 05/23/2017 PROCEDURE: Bilateral carotid duplex imaging. REFERRING PHYSICIAN: Donn Montesinos MD INTERPRETING PHYSICIAN: ELISSA Hernandez COMPARISON: Exam for comparison was 03/09/2017 INDICATIONS: Recent CVA, change from March with right-sided weakness. OBSERVED DATA RIGHT LEFT Brachial Blood Pressure Carotid Pulse Bruits: Carotid/Sub DIAGRAM OF ULTRASOUND IMAGING R L RIGHT INT EXT INT EXT LEFT Aniceto (cm/s) Aniceto (cm/s) Subclavian 118/0 Subclavian 108/0 CCA Proximal 85/25 CCA Proximal 101/25 CCA Distal 93/27 CCA Distal 90/25 Bulb 82/22 Bulb 60/22 ICA Proximal 79/27 ICA Proximal 72/22 ICA Mid 84/27 ICA Mid 80/27 ICA Distal 116/39 ICA Distal 91/31 ECA 101/14 ECA 93/11 Vertebral 72/15, antegrade Vertebral 71/16, antegrade. ICA/CCA Ratio 1.25 ICA/CCA Ratio 0.90 % Stenosis 0-39 % Stenosis 0-39 FINDINGS: In the proximal internal carotid artery on the right side, there is a very small focal plaque or atherosclerotic change here with very [id number] intimal thickening in the carotid bulb on the right. On the left side, similarly in the bulb there is some intimal thickening or atherosclerotic changes here. None of these lesions cause turbulence of flow or elevation in velocity. PHYSICIAN INTERPRETATION: Mild atherosclerotic disease in bilateral carotid arteries but no flow- limiting lesions noted. cc: MD Donn Canseco MD
[2017-05-24] MEDS: LIPITOR PO SCH (22:23)
[2017-05-25] MEDS: TYLENOL PO PRN (03:40)
[2017-05-25] MEDS: XANAX PO SCH ×2 (06:12→14:40)
[2017-05-25 06:58] LABS: MANUAL DIFF NEEDED? NO
[2017-05-25 07:17] LABS: BASO% 0.5 % (0.0-0.8); EOS# 0.28 X1000 (0.0-0.7); EOS% 3.3 % (0.0-10.0); HEMATOCRIT 39.9 % (37.0-47.0); HEMOGLOBIN 13.1 g/dL (12.0-16.0); LYMPH# 4.28 X1000 (1.2-3.4); LYMPH% 50.3 % (20.5-51.1); MCH 30.8 PG (27-31); MCHC 32.8 g/dL (33-37); MCV 93.9 FL (81-99); MONO# 0.62 X1000 (0.11-0.59); MONO% 7.3 % (1.7-9.3); MPV 11.2 FL (7.4-10.4); NEUT% 38.6 % (42.2-75.2); PLT 314 X1000 (130-400); RBC 4.25 XMIL (4.2-5.4)
[2017-05-25 07:42] LABS: AGAP 12; BUN 7 mg/dL (8-22); CALCIUM 8.4 mg/dL (8.8-10.2); CHLORIDE 106 mmol/L (98-107); COSMO 282; POTASSIUM 3.3 mmol/L (3.5-5.1); SODIUM 143 mmol/L (136-145); TCO2 25 mmol/L (25-35)
[2017-05-25] MEDS ORDERED: KLOR-CON PO ONE (08:09)
[2017-05-25] MEDS: NICODERM PATCH TD SCH (10:47)
[2017-05-25] MEDS: ASPIRIN PO SCH (10:47)
[2017-05-25] MEDS ORDERED: NICODERM PATCH TD SCH (11:11)
[2017-05-25] MEDS: NORCO-5 PO PRN ×2 (14:41→21:14)
--- NOTE | 2017-05-25 18:04 | PROGRESS NOTE ---
DATE: 05/25/2017 SUBJECTIVE: This patient states that she is feeling about the same. She is still complaining of visual problems and headache. No chest pain. No shortness of breath. No new changes. OBJECTIVE: Vital Signs: Temperature 98.1 degrees, pulse 56, respiratory rate 20, blood pressure 106/61, oxygen saturation 98 on room air. HEENT: Head normocephalic. No trauma. PERRLA. Neck: Supple. No JVD. No masses. Central trachea. Cardiovascular: Regular rate and rhythm. Chest: Clear to auscultation. No wheezing. No rales. Abdomen: Soft, nontender, nondistended. No hepatosplenomegaly. Extremities: No edema. No clubbing. No cyanosis. Neurological Examination: The patient is alert and oriented x3. She moves all 4 extremities. Mild right hand weakness. As per the patient, she has some vision blurriness. LABORATORY: WBC 8.5, hemoglobin 13.1, hematocrit 39.9, platelets 314,000. Sodium 143, potassium 3.3, chloride 106, bicarbonate 25. BUN 7, creatinine 0.6, glucose 86, calcium 8.4. ASSESSMENT AND PLAN: 1. Right occipital lobe stroke. Echocardiogram and carotid ultrasound did not show any abnormality that can explain these symptoms. Pending MRI and evaluation by Neurology Department, probably after this study and the evaluation by Neurology, this patient can go home. 2. Chronic back pain. Continue with pain medication p.r.n. 3. History of ovarian cancer, aware. 4. Hypertension. Continue with the same management. 5. Bradycardia without symptoms, aware. 6. Anxiety. I will increase the dose of Xanax from 0.5 to 1 twice a day. 7. History of Crohn's disease, aware. 8. Tobacco abuse. This patient has been highly advised against tobacco abuse. I will continue with daily cessation education and I will continue with nicotine patch. 9. Deep vein thrombosis prophylaxis with Lovenox. cc: Donn Montesinos MD
[2017-05-25] MEDS: ZOFRAN IV PRN (21:14)
[2017-05-25] MEDS: LIPITOR PO SCH (21:15)
[2017-05-26] MEDS: XANAX PO SCH ×2 (02:45→13:50)
--- NOTE | 2017-05-26 06:24 | EKG Report ---
Test Performed on : 05/24/2017 11:03:14 AM Test Reason : Bradycardia Blood Pressure : / mmHG Vent. Rate : 047 BPM Atrial Rate : 047 BPM P-R Int : 170 ms QRS Dur : 092 ms QT Int : 448 ms P-R-T Axes : 050 000 056 degrees QTc Int : 396 ms Sinus bradycardia. Otherwise normal ECG When compared with ECG of 09-MAR-2017 00:19, No significant change was found Confirmed by Devin TURCIOS, Dav Gardner ([id number]) on 05/27/2017 2:15:05 PM
[2017-05-26 07:53] LABS: AGAP 11; BUN 7 mg/dL (8-22); CALCIUM 8.7 mg/dL (8.8-10.2); CHLORIDE 107 mmol/L (98-107); COSMO 284; POTASSIUM 3.9 mmol/L (3.5-5.1); SODIUM 144 mmol/L (136-145); TCO2 26 mmol/L (25-35)
[2017-05-26] MEDS: ASPIRIN PO SCH (09:43)
[2017-05-26] MEDS: NICODERM PATCH TD SCH (09:43)
[2017-05-26] MEDS: NORCO-5 PO PRN ×2 (13:06→19:00)
--- NOTE | 2017-05-26 13:59 | PROGRESS NOTE ---
DATE: 05/26/2017 SUBJECTIVE: The patient still continues to complain of inability to see in her left peripheral vision. OBJECTIVE: Vital Signs: Temperature 97 degrees, blood pressure 111/66, heart rate 46, respirations 18, O2 saturations 99% on room air. General: This is a middle-aged female lying in bed in no acute distress. Head: Normocephalic, atraumatic. Heart: S1, S2. Normal. Regular rate and rhythm. Lungs: Clear to auscultation bilaterally. No wheezes, no rales. No rhonchi. Abdomen: Positive bowel sounds. Soft, nontender, nondistended. Extremities: No edema. No cyanosis. No calf tenderness. Neuro: The patient is alert, oriented x3. LABS: Reviewed. ASSESSMENT AND PLAN: 1. Right occipital lobe cerebrovascular accident. The patient continues to have difficulty with peripheral vision in her left eye. She states that she does have some difficulty with ambulation and seeing due to the stroke. Will continue on aspirin plus Lipitor. Neurology has been consulted for further recommendations. 2. Asymptomatic bradycardia. Will continue to monitor this closely. 3. Anxiety disorder. Continue on Xanax. 4. Tobacco dependence. The patient has been counseled about smoking cessation. Continue on the NicoDerm patch. 5. Disposition. The patient does not have health insurance. Will consult with [facility] to see if there are any services available for when the patient is discharged home. cc: Krissy Black MD
[2017-05-26] MEDS: LIPITOR PO SCH (22:13)
[2017-05-27] MEDS: XANAX PO SCH ×2 (02:17→09:42)
[2017-05-27] MEDS: NORCO-5 PO PRN ×3 (03:52→20:30)
--- NOTE | 2017-05-27 05:27 | CONSULTATION ---
DATE OF CONSULTATION: 05/26/2017 REQUESTING PHYSICIAN: The patient is seen in consultation at the request of Dr. Black and Dr. Rodriguez for evaluation of stroke. HISTORY OF PRESENT ILLNESS: The patient is a 47-year-old right-handed female, with a past medical history of hypertension, uterine cancer, Crohn's, and tobacco abuse , who was admitted with prominent complaints of visual problems, noted to have a recent right occipital ischemic infarct on head CT. She states that the evening prior to admission, she tripped over a rug and fell, hitting her head on a dresser. She went to sleep that evening and woke up the day of admission, with prominent visual disturbance, headache and right arm/hand symptoms. She came to the emergency room, and a head CT showed the recent right occipital infarct. She also reports having onset of right arm weakness and sensory disturbance a couple of months ago, and was treated at [facility]. She was told that her imaging did not show evidence of a stroke. Her symptoms did resolve entirely. Currently, she says that her headache continues, as well as the visual complaint, where she cannot see well out of her left eye, per the patient. She says her right hand symptoms have resolved. She has had an echocardiogram that did not show any thrombus, a carotid Doppler study that did not show any significant flow-limiting lesions. She has been started on aspirin 325 mg daily, as well as Lipitor 40 mg daily for secondary stroke prevention. She has also been given a NicoDerm patch for smoking cessation. PAST MEDICAL HISTORY: History of uterine or ovarian cancer, hypertension, Crohn 's disease, chronic back and neck pain, possible rhabdomyolysis, degenerative disk disease at C4-C5, and possible TIA 2 months ago, though this is not confirmed. Hysterectomy, tonsillectomy, and colon polyps removed. SOCIAL HISTORY: She is a current smoker. Denies alcohol or illicit drug use. She works at a [email or web address], and lives in [place]. FAMILY HISTORY: Positive for HTN ALLERGIES: Codeine, Toradol, Phenergan, and Ultram. HOME MEDICATIONS: Xanax 0.5 p.o. q.8 hours and gabapentin 100 mg t.i.d. This hospitalization, she has been started on a full-dose aspirin, as well as atorvastatin 40 mg daily. REVIEW OF SYSTEMS: Balance of 12 was conducted, and was negative, except for that mentioned in the HPI, and in addition, she denies any dizziness or unsteadiness. No dysarthria or swallowing difficulties. PHYSICAL EXAMINATION: Vital Signs: Afebrile. Blood pressure 118 to 156 over 70s. Pulse 50s. Respiration 16. 95% on room air. General: She is in no acute distress, sitting up in bed. Appropriate and interactive. HEENT: Normocephalic, atraumatic. Sclerae are anicteric. No erythema. Moist mucous membranes. Neck: Supple, without carotid bruits. Cardiovascular: Regular rate and rhythm. No murmurs. Lungs: Clear to auscultation anteriorly. Abdomen: Soft, nontender. Extremities: Well-perfused, without edema. Good pedal pulses. Neurologic: Mental status: Awake, alert, fully oriented. Speech is fluent. Attention and concentration are intact. She is appropriately conversant. Cranial nerves: PERRL. Conjugate gaze. Ocular movements are full. Visual field testing reveals a left homonymous hemianopia. Face is symmetrical, with equal activation. Facial sensation is intact. Tongue protrudes midline. Palate elevates symmetrically. Shoulder shrug is full. Motor exam: No drift. Strength testing is a 5/5 and symmetric. No definite asymmetry is noted. Sensory exam is intact and symmetric. Reflexes are symmetric and 2+ throughout. Coordination is intact. No evidence of incoordination on exam. Gait: She has a normal casual gait, which is steady, and is walking unassisted. DIAGNOSTIC DATA: Noncontrast head CT was personally reviewed. It shows a right occipital lobe infarct. CT of the cervical spine notes advanced degenerative disease, which is stable from a prior study. Carotid Dopplers showed only mild atherosclerotic disease in the bilateral carotid arteries, but no flow-limiting lesion. Echocardiogram did not show any thrombus. There is a normal LV systolic function, and very mild mitral, tricuspid, and pulmonic regurgitation, borderline elevated pulmonary pressure. LABORATORY DATA: Her hematology is unremarkable. Her PT is 10.6, INR 1.01. Sodium 144, potassium 3.9. BUN of 7, creatinine 0.7. Glucose 90. Calcium 8.7, magnesium 1.8. LFTs are not elevated. Urinalysis was negative. Toxicology was positive for benzodiazepine. Alcohol is negative. ASSESSMENT AND PLAN: This is a 47-year-old right-handed female, who was admitted with a right occipital lobe infarct. Her exam is consistent with a left homonymous hemianopia. Agree with full-dose aspirin daily, and I have discussed this with her. Also, agree with the statin daily, which has been started. Would check a hemoglobin A1c and a cholesterol panel. Telemetry monitoring to evaluate for afib. Adequate blood pressure control for secondary stroke prevention is also important. I have discussed the importance of smoking cessation with the patient. I have ordered an MRA of the head and neck in light of her stroke, which is posterior circulation in nature, as carotid dopplers are for anterior circulation strokes. I would like the MRA to evaluate for dissection, given her recent trauma just prior to both events as well as her relatively young age. I also discussed with the patient her driving limitations, in light of her visual disturbance. I think this is going to make driving unsafe for her, and this was detailed. Thank you for this consultation. Will follow. cc: Rola Ruff MD MTDD
[2017-05-27 08:02] LABS: HEMOGLOBIN A1C 5.1 % (4.8-6.0)
[2017-05-27 08:04] LABS: HDL 43 mg/dL (45-65); LDL 54 mg/dL; TRIGLYCERIDES 275 mg/dL (35-135); VLDL 55 mg/dL
--- NOTE | 2017-05-27 09:26 | Diag Imaging Result Doc PS360 ---
EXAM: MRA BRAIN W/O CONTRAST HISTORY: posterior circ stroke TECHNIQUE: MRA of the brain 3-D [id number] with processed images COMMENT: There is asymmetry of the A1 segments with the left being smaller than the right. Both are patent however. The middle cerebral cerebral circulations are fairly unremarkable. There is a high-grade stenosis or occlusion present in the mid to distal right posterior cerebral artery. The stenotic segment is at least 3 mm in length. 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 Electronically signed by Justice Enciso 05/27/2017 9:24 AM
--- NOTE | 2017-05-27 09:29 | Diag Imaging Result Doc PS360 ---
EXAM: MRA NECK W/CONT HISTORY: posterior circ stroke TECHNIQUE: MRA of the neck with gadolinium, FT CE MRA with processed images. COMMENT: The common carotid arteries are unremarkable in appearance. The vertebral and basilar arteries are patent. Both internal carotid arteries are somewhat tortuous particularly the left. There is no definite evidence of significant stenosis in either internal carotid artery. IMPRESSION: No evidence of significant stenosis in the neck vessels. Electronically signed by Justice Enciso 05/27/2017 9:27 AM
[2017-05-27] MEDS: ASPIRIN EC PO SCH (09:41)
[2017-05-27] MEDS: NICODERM PATCH TD SCH (09:42)
[2017-05-27] MEDS ORDERED: FIORICET PO ONE ×2 (09:58→15:51)
--- NOTE | 2017-05-27 14:01 | PROGRESS NOTE ---
DATE: 05/27/2017 SUBJECTIVE: The patient is about the same today. She still has visual disturbance which is a left field cut. She has been having some positive visual symptoms in the left field that she has reported from time to time. An MRA of the head and neck were performed yesterday afternoon and showed a high-grade stenosis or possible occlusion of the right RAILROAD HAND. Of note, to clarify her cancer history that has been recorded in the chart- she says she only had cervical cancer, not ovarian or uterine. She had some sort of procedure done to manage it. At some point she was told she had waited too long, and she believes she had a hysterectomy due to this. She reports having, I believe a pap smear, at the local health dept recently and was told she has abnormal cells but that she should not worry about it. OBJECTIVE: Vital signs are reviewed. She is afebrile. Her blood pressure is 116-125/70s, pulse in the 50s, respirations 20. General: She is in no acute distress. She is pleasant and cooperative. Sitting up in bed. HEENT: Normocephalic, atraumatic. Sclerae are anicteric. Moist mucous membranes. Neck supple. Cardiovascular: Regular rate and rhythm. No murmurs. Lungs are clear to auscultation anteriorly. Neurologic: Mental status: She is awake , alert, and oriented x3. Her speech is fluent. Attention and concentration are intact. Cranial nerves, PERRL, conjugate gaze. She has full ocular movements. She has a left homonymous hemianopia on visual field testing. Face is symmetrical with equal activation. Motor Exam: She is 5/5 throughout with no asymmetry. She has no pronator drift. Sensory exam is intact. No incoordination on exam. DIAGNOSTIC DATA: MRA of the brain was personally reviewed. There is a high- grade stenosis, possible occlusion of the right posterior cerebral artery which is about 3 mm in length per the Radiologist. The MRA of the neck - there was no significant stenosis. I also reviewed this personally with the Radiologist today to be certain that there was no evidence of dissection. LABORATORY DATA: Labs were reviewed. Her hematology unremarkable. BUN of 7, creatinine of 0.7. Calcium of 8.7. Her LFTs are not elevated. Her cholesterol is 275. LDL is 64. HDL is 43. Hemoglobin A1c is 5.1. ASSESSMENT AND PLAN: A 47-year-old, right-handed female with remote history of cervical cancer, hysterectomy, recent gynecological evaluation with atypical cells, current smoker, who is admitted with a right occipital lobe infarct. MRA shows high-grade stenosis or possible occlusion of the right RAILROAD HAND. 1. Acute ischemic stroke. Right RAILROAD HAND territory with right RAILROAD HAND stenosis vs occlusion on imaging. I suspect that this is an atherosclerotic RAILROAD HAND lesion that we are dealing with; however, given her relatively young age, vague cancer history with current atypical cells that she has reported, a lack of close physician care, and relatively good appearance of the other blood vessels imaged, I think it is reasonable to obtain some further workup for young stroke in this patient. This would include consideration of a transesophageal echo for visualization and evaluation for thrombus, some young stroke hypercoagulable lab work as well. Some of the hypercoagulable workup is best done out of the acute stroke setting as they can be transiently elevated. So, I think it is reasonable to do this as an outpatient. Could also consider a CT angiogram as an outpatient for further evaluation of this stenotic lesion, although I do not think that this is urgent. Continue full-dose aspirin daily as well as the daily statin therapy as you have already done. I agree with the telemetry monitoring. I would allow her blood pressure to run a little bit high in light of the high-grade stenosis. Again, smoking cessation was discussed with the patient. 2. Episodes of visual hallucinations in the left field. We will order a routine EEG to evaluate for seizures emanating from the location of the infarct. 3. h/o cervical cancer; recent atypical cells noted at health department. Agree with referral to ART INSTRUCTOR for evaluation. Thank you for this consultation. cc: Rola Ruff MD [facility]
--- NOTE | 2017-05-27 16:56 | EEG REPORT ---
DATE: 05/27/2017 REFERRING PHYSICIAN: Dr. Ruff. EEG #: [id number]. ELECTRONICS COMMODITY MANAGER: David Chambers. BACKGROUND INFORMATION: TECHNIQUE: A digitally recorded EEG is obtained with 1 additional channel for EKG. HISTORY OF PRESENT ILLNESS: This is a 47-year-old female, admitted with right arm sensory loss and a left field cut. She is found to have a right occipital stroke. She is seeing some visual hallucinations in the left visual field. An EEG is ordered to detect evidence of seizures. MEDICATIONS: Include Xanax. EEG FINDINGS: A posterior dominant 9 hertz alpha rhythm is seen symmetrically in the occipital regions. At maximal alertness the background consists of alpha and beta frequencies. There is some admixed theta frequencies. No definite persistent focal slowing is seen. No epileptiform discharges and no seizures are noted. Hyperventilation was not performed. Photic stimulation induced a normal photic driving response. The patient becomes drowsy and stage 2 sleep is observed. The EKG shows regular RR interval. IMPRESSION AND CLINICAL CORRELATION: Abnormal routine EEG in the awake and asleep states due to: 1. Mild diffuse slowing suggestive of a mild encephalopathy. Generalized slowing is a nonspecific finding that can be seen in processes that diffusely affect the cerebrum, including toxic, metabolic,pharmacologic, infectious and post hypoxic etiologies. 2. No epileptiform abnormalities and no seizures are seen on this study. This does not rule out an underlying seizure disorder. Clinical correlation is advised. cc: Rola Ruff MD
[2017-05-27] MEDS: LIPITOR PO SCH (20:28)
[2017-05-27] MEDS: ZOFRAN IV PRN (20:31)
--- NOTE | 2017-05-27 22:04 | CONSULTATION ---
DATE OF CONSULTATION: 05/27/2017 IMPRESSION: 1. Right occipital cerebrovascular accident, possibly embolic. 2. Previous transient ischemic attack 2 months ago with transient right arm numbness and weakness. 3. Chronic cigarette use. 4. Hypertension. 5. Borderline diabetes mellitus. 6. Crohn disease. 7. History of gynecologic malignancy. Patient is status post hysterectomy and bilateral salpingo- oophorectomy. PAST SURGICAL HISTORY: Includes. 1. Tonsillectomy and remove colon polyps. 2. History of degenerative disk disease C4-C5. ALLERGIES: She is allergic or intolerant to codeine, Toradol, Phenergan, Ultram. MEDICATIONS: Prior to admission as listed. It is noteworthy that she took BC Powder on a regular basis prior to admission. She indicates she took BC Powder several times a day. SOCIAL HISTORY: She has history of chronic cigarette use. She does not use alcohol or illicit drugs. She lives in [place] and works at a [employer]. FAMILY HISTORY: Positive for hypertension and negative for premature coronary disease. REVIEW OF SYSTEMS: Pulmonary: Negative. Gastrointestinal: Negative. Constitutional: Negative. Remainder review of systems negative beyond history present illness with 14 total systems reviewed. PHYSICAL EXAMINATION: General: This is a middle-aged female in no distress. Vital Signs: As recorded stable. HEENT: Extraocular movements appear intact. Mucous membranes moist. Neck: Supple without JV distention. No carotid bruits. Chest: Clear to auscultation. Cardiac Exam: A regular rate and rhythm without appreciable murmur or gallop. Abdomen: Soft, nontender. Bowel sounds normal. Extremities: Without edema. Neurologic Exam: Reveals her to be alert, fully oriented. Speech is fluent. Moves all 4 extremities equally well. Skin: Warm, dry. Psych: Exam reveals her mood to be appropriate. ASSESSMENT: 1. Borderline diabetes mellitus. 2. Occasional palpitations. Consider the possibility of paroxysmal atrial fibrillation. RECOMMENDATIONS: 1. Agree with plans for transesophageal echocardiography. 2. If ARLEY negative for cardiac source of embolus, would consider ambulatory ECG monitoring with 30 day event recorder to further screen for paroxysmal atrial fibrillation. 3. Given that patient has taken BC Powder on a daily basis, this recent cerebrovascular accident would constitute of failure of aspirin. HISTORY: This 47-year-old right-handed female with past history of borderline diabetes, uterine cancer, Crohn disease and chronic smoking was admitted with visual difficulty and found to have right occipital ischemic infarct on head CT. She noted that on the evening prior to admission she tripped over a rug and fell hitting her head. She awoke the next day and noticed visual disturbance. She came to the emergency room and brain imaging studies demonstrated evidence of right occipital cerebrovascular accident. A couple months ago she had episode of right arm weakness and numbness which was transit. Symptoms resolved spontaneously. She does describe occasional momentary palpitations as well as episodes of tachy palpitations. She has tendency for headache and takes BC Powder at least once or twice every day. PAST MEDICAL HISTORY: 1. Borderline diabetes mellitus. 2. Uterine cancer. 3. Crohn disease. 4. Degenerative disk disease C4-C5. 5. Suspected transient ischemic attack 2 months ago. 6. Past surgical history includes hysterectomy, tonsillectomy and removal colon polyps. 7. She is allergic or intolerant to codeine, Toradol, Phenergan and Ultram. 8. Medications prior to admission as listed. It is noteworthy that she was taking BC Powder at least once, twice a day for chronic back and neck pain. SOCIAL HISTORY: She has history of chronic cigarette use. She does not use alcohol or illicit drugs. She works at [employer] and lives in [place]. FAMILY HISTORY: Positive for hypertension and negative for premature coronary disease. DATA: Twelve lead EKG demonstrates sinus bradycardia but is otherwise within normal limits. cc: Eduardo Mukherjee MD
--- NOTE | 2017-05-28 03:48 | PROGRESS NOTE ---
DATE: 05/27/2017 SUBJECTIVE: The patient complains of a headache and continued visual disturbance. OBJECTIVE: Vital Signs: Temperature 98.1 degrees, blood pressure 116/75, heart rate 58, respirations 20, O2 saturations 98% on room air. General: This is a middle-aged female, sitting up in bed, in no acute distress. Head: Normocephalic, atraumatic. Heart: S1, S2. Normal. Regular rate and rhythm. Lungs: Clear to auscultation bilaterally. No wheezing. No rales. No rhonchi. Abdomen: Positive bowel sounds. Soft, nontender, nondistended. Extremities: No edema. No cyanosis. ASSESSMENT AND PLAN: 1. Right occipital lobe CVA. There was a concern about a possible thrombosis given the patient's risk factors. The case was discussed with Dr. Hennessy and it was decided to order a ARLEY for further evaluation. The patient's MRA of the brain done this morning shows a high-grade stenosis of the right posterior cerebral artery. Will continue to advise the patient to modify her risk factors, which includes to quit smoking. We will continue on full dose aspirin and Lipitor. 2. Asymptomatic bradycardia. Stable. 3. Anxiety disorder. Continue on Xanax. 4. Tobacco dependence. Continue on the NicoDerm patch. 5. Continue with physical therapy. cc: Krissy Black MD
[2017-05-28] MEDS: ASPIRIN EC PO SCH (10:11)
[2017-05-28] MEDS: NICODERM PATCH TD SCH (10:11)
--- NOTE | 2017-05-28 10:40 | PROGRESS NOTE ---
DATE: 05/28/2017 SUBJECTIVE: The patient is about the same today again. She still has the left field cut which is bothersome to her. Having some headaches. It has been noted now that she has been taking 6 Goody powders every day, long-standing for back pain and such. Cardiology saw the patient yesterday and is going ahead with the transesophageal echocardiogram today. OBJECTIVE: Vital Signs: She is afebrile. Her blood pressure is 118/69, pulse 48-61. Respirations 13. General Exam: She is in no acute distress. Sitting up in bed. Her daughter is at bedside today. HEENT: Normocephalic atraumatic. Sclerae are anicteric. Moist mucous membranes. Neurologic Exam: Mental status, she is awake, alert. She is fully oriented. Her speech is fluent. Attention and concentration are intact. Cranial nerves: BRANT, gaze is conjugate. Her ocular movements are full. She continues to have a left homonymous hemianopia. Face is symmetrical with equal activation. Motor exam: She is moving all of her extremities equally. Sensation has been intact. There is no incoordination that is apparent. DIAGNOSTICS: A routine EEG was performed yesterday and personally reviewed. It was abnormal due to mild diffuse slowing, which is indicative of a mild encephalopathy. This is nonspecific. No epileptiform discharges or seizures were noted. ASSESSMENT AND PLAN: A 47-year-old, right-handed female, with a remote history cervical cancer, hysterectomy, recent gynecological evaluation with atypical cells, current smoker and recent most likely TIA about 2 months ago, which involved right upper extremity sensory disturbance, who was admitted with a right occipital lobe infarct. MRI with high-grade stenosis or possible occlusion of the right posterior cerebral artery. 1. 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 The patient is stable. Again, I do suspect this is most likely atherosclerotic based on the look of the lesion on imaging, but based on her risk factors, and young age I think it is a good idea to obtain some further workup to be more certain this is not embolic. Appreciate Cardiology seeing the patient, and their plans are to do the ARLEY today. If this does not show anything, then they will plan to send the patient home with a monitor for further evaluation of paroxysmal atrial fibrillation. I agree with switching aspirin over to Plavix based on the new history that the patient has been taking quite a bit of Goody powder on a daily basis which has aspirin. Young stroke labs (ApL or lupus anticoagulant, anticardiolipin Abs, Factor V Leiden, Prothrombin, Protein C/S, Antithrombin III) can be done as an outpatient given that she is in the acute ischemic stroke setting and some of these may be transiently elevated during this time. Again, if needed, could also consider a CT angiogram as an outpatient for further evaluation of the lesion. Would allow the blood pressure to run a little high for this patient. I agree with Lipitor 40 mg daily. Smoking cessation was again discussed with the patient at length. 2. Atypical cells on recent pap at [facility]. Agree with referral to OBGYN for more in depth evaluation given her cervical cancer history. cc: Rola Ruff MD MTDD
--- NOTE | 2017-05-28 10:52 | EKG Report ---
Test Performed on : 05/28/2017 07:19:30 AM Test Reason : bradycardia Blood Pressure : / mmHG Vent. Rate : 047 BPM Atrial Rate : 047 BPM P-R Int : 170 ms QRS Dur : 092 ms QT Int : 476 ms P-R-T Axes : 038 000 062 degrees QTc Int : 421 ms Sinus bradycardia. Otherwise normal ECG When compared with ECG of 24-MAY-2017 11:03, No significant change was found Confirmed by Devin TURCIOS, Dav Gardner ([id number]) on 05/29/2017 2:59:15 PM
[2017-05-28] MEDS ORDERED: SODIUM CHLORIDE 0.9% 10 ML ONE (11:41)
[2017-05-28] MEDS ORDERED: XYLOCAINE 4% TOPICAL SOLUTION ONE (11:41)
[2017-05-28] MEDS ORDERED: XYLOCAINE 2% VISCOUS ONE (11:41)
[2017-05-28] MEDS ORDERED: CLAVE TWINSITE 32 IN 11959 ONE (11:52)
[2017-05-28] MEDS ORDERED: ANESTHESIA PB SET 88 IN 5742 ONE (11:52)
[2017-05-28] MEDS ORDERED: NS 1,000 ML ONE (11:52)
[2017-05-28] MEDS ORDERED: DIPRIVAN 1% ONE (12:23)
--- NOTE | 2017-05-28 13:36 | PROGRESS NOTE ---
DATE: 05/28/2017 SUBJECTIVE: The patient underwent transesophageal echocardiography today. Preliminary findings include all 4 cardiac valves appear structurally normal, mild mitral regurgitation, mild tricuspid regurgitation, normal left ventricular dimensions and systolic function, normal left atrium, right atrium and right ventricle, all 4 cardiac chambers appear free of intracardiac thrombus, including left atrial appendage, and interatrial septum appears without defect. There is no evidence on color Doppler of interatrial shunting. However, intravenous agitated saline contrast study demonstrates evidence of patent foramina ovale. IMPRESSION: 1. Mild mitral regurgitation mild tricuspid regurgitation. 2. Normal left ventricular function without wall motion abnormality evident. 3. All 4 cardiac chambers appear free of intracardiac thrombus. 4. Intravenous agitated saline contrast study demonstrates evidence of patent foramen ovale. Full report to follow. cc: Eduardo Mukherjee MD
[2017-05-28] MEDS: NORCO-5 PO PRN ×2 (16:40→23:35)
[2017-05-28] MEDS: XANAX PO SCH ×2 (16:41→21:01)
[2017-05-28] MEDS: LIPITOR PO SCH (21:01)
[2017-05-28] MEDS: TYLENOL PO PRN (21:04)
[2017-05-28] MEDS: ZOFRAN IV PRN (21:04)
[2017-05-28] MEDS ORDERED: XANAX PO ONE (23:28)
--- NOTE | 2017-05-29 03:59 | ECHO REPORT ---
ORDER DATE: 05/27/2017 SUMMARY: After topical anesthesia to the oropharynx and intravenous sedation with propofol per anesthesiology, transesophageal echocardiography probe was advanced by myself into the patient's esophagus without difficulty. ARLEY was performed without incident and demonstrated: 1. Aortic, mitral, tricuspid, and pulmonic valves are without structural abnormality. There is very mild mitral regurgitation and trace tricuspid regurgitation. 2. Normal left ventricular dimensions demonstrated. Estimated left ejection fraction appears to be at least 65%. No regional wall motion abnormalities are evident. Left atrium, right atrium, and right ventricle are normal in size with normal right ventricular systolic function. All 4 cardiac chambers including left atrial appendage appear free of intracardiac thrombus. 3. No defect in the interatrial septum can be appreciated on 2-D images. There is no color Doppler evidence of interatrial shunting. Intravenous agitated saline contrast study performed and demonstrates small puff of "bubbles" crossing in the vicinity of what is likely small patent foramen ovale. 4. No pericardial effusion. 5. Aortic root normal in size and appears free of atheromata. Descending thoracic aorta also appears free of atheromata. CONCLUSIONS: 1. Very mild mitral regurgitation. 2. Normal left ventricular systolic function without wall motion abnormality evident. 3. Small patent foramen ovale. cc: Eduardo Mukherjee MD
[2017-05-29] MEDS ORDERED: XANAX PO PRN (06:43)
[2017-05-29 07:46] VITALS: BP 105/66
[2017-05-29] MEDS: NICODERM PATCH TD SCH (08:14)
[2017-05-29] MEDS: NORCO-5 PO PRN ×2 (08:26→14:52)
[2017-05-29] MEDS ORDERED: PLAVIX PO SCH (09:00)
[2017-05-29] MEDS ORDERED: XANAX PO SCH (13:00)
--- NOTE | 2017-05-29 13:15 | Extremity Venous Study ---
PROCEDURE NAME: Venous U/S Bilateral Legs - 05/28/2017 PROCEDURE: Bilateral lower extremity venous duplex and color flow imaging study. EQUIPMENT: [employer] E 9 ultrasound system with a 9 L-D transducer. DATE OF STUDY: 05/28/2017. REFERRING PHYSICIAN: Dr. Mukherjee. IDENTIFICATION: A 47-year-old female. CHAINMAN: Charlotte Major RVT. INDICATIONS: Swelling of the limb, ICD 10 M 79.89. FINDINGS: Right common femoral vein and its branches, deep and superficial femoral veins were satisfactorily imaged. They had flow through them and were compressible. Right popliteal vein and the deep veins below the right knee were all compressible and had flow through them. The superficial veins of the right lower extremity were compressible throughout their length. The left common femoral vein and its branches, deep and superficial femoral veins were also satisfactorily imaged. They had flow through them and were compressible. Left popliteal vein and the deep veins below the left knee were all compressible and had flow through them. The superficial veins of the left lower extremity were compressible throughout their length. The superficial veins of the left lower extremity were compressible throughout their length. INTERPRETATION: No evidence of acute deep or superficial venous thrombosis of the bilateral lower extremities. cc: MD Eduardo Manrique MD
--- NOTE | 2017-05-30 20:32 | DISCHARGE SUMMARY ---
ADMISSION DATE: 05/23/2017 DISCHARGE DATE: 05/29/2017 FINAL DISCHARGE DIAGNOSES: 1. Right occipital lobe cerebrovascular accident. 2. Patent foramen Ovale. 3. Asymptomatic bradycardia. 4. Anxiety disorder. 5. Tobacco dependence. IMAGING PERFORMED DURING THIS HOSPITAL COURSE: 1. CT of the head and cervical spine which revealed a recent infarction in the right occipital lobe. 2. Carotid Doppler study which revealed in the proximal internal carotid artery on the right side, there is a very small focal plaque or atherosclerotic change with [id number] intimal thickening in the carotid bulb on the right. 3. Two dimensional echocardiogram which revealed an ejection fraction of 75%. 4. Neck MRA which revealed no evidence of significant stenosis and the neck vessels clear. 5. 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 6. Extremity venous study which revealed no evidence of DVT in the lower extremities. HOSPITAL COURSE: Ms. Langford is a 47-year-old female with a history of tobacco abuse and chronic headaches who presented to the ER with a chief complaint of right hand weakness and blurred vision in both eyes. The patient was admitted to the hospitalist service. A head CT was done in the ER that revealed a recent right occipital lobe infarct. Neurology was consulted. The patient later underwent an MRA of the neck and an MRA of the brain. The MRA of the brain revealed high-grade stenosis involving the posterior cerebral artery. While there was concern about possible embolic phenomenon, Cardiology was consulted to perform a ARLEY. The ARLEY revealed a small patent foramen Ovale. The patient also had an EEG that was unremarkable. The patient admitted to [facility], so the patient was placed on Plavix rather than aspirin as an antiplatelet. The patient was also started on Lipitor. The patient was seen by physical therapy as well. The patient continued to improve clinically and was ultimately cleared for discharge home on 05/29/2017. DISCHARGE MEDICATIONS: 1. Lipitor 40 mg p.o. at bedtime. 2. Plavix 75 mg p.o. daily. 3. [place] 5/325 one tab oral every 4 hours p.r.n. for pain. 4. Xanax 0.5 mg p.o. every 8 hours. DISCHARGE DIET: Low sodium diet, low cholesterol diet. ACTIVITY: As tolerated. FOLLOWUP INSTRUCTIONS: The patient will need to follow up with Dr. Campbell as scheduled by his clinic. The patient will also need to follow up with Dr. Mukherjee in 2 weeks. The patient was also advised to follow up with Dr. Griffith as a new patient. The patient was provided with the phone number for Dr. Griffith's office. cc: Krissy Black MD
== END 2017-05-29 14:55 | disposition home or self-care (01) ==
LOC: ED 15:03 → SUATTDRO 20:45 → 3N 20:45
PROVIDERS: ATTEND Internal Medicine

== ENCOUNTER 2017-05-31 01:19 | Inpatient (IN) ==
[2017-05-31] MEDS ORDERED: NARCAN IV ONE ×2 (01:25→05:02)
[2017-05-31 01:45] LABS: MANUAL DIFF NEEDED? NO
[2017-05-31 01:49] LABS: EOS% 5.2 % (0.0-10.0); HEMATOCRIT 40.9 % (37.0-47.0); HEMOGLOBIN 13.6 g/dL (12.0-16.0); IMM GRAN# 0.03 X1000 (0.0-0.04); IMM GRAN% 0.3 % (0.0-0.5); LYMPH% 40.5 % (20.5-51.1); MCH 31.4 PG (27-31); MCHC 33.3 g/dL (33-37); MCV 94.5 FL (81-99); MONO# 0.77 X1000 (0.11-0.59); MPV 11.3 FL (7.4-10.4); PLT 330 X1000 (130-400); RBC 4.33 XMIL (4.2-5.4)
[2017-05-31 02:24] LABS: ACETAMINOPHEN < 1.2 ug/mL (10-30); AGAP 17; ALBUMIN 4.2 g/dL (3.5-5.0); ALKALINE PHOSPHATASE 69 U/L (32-104); BUN 12 mg/dL (8-22); CALCIUM 9.2 mg/dL (8.8-10.2); CHLORIDE 105 mmol/L (98-107); COSMO 288; GOT 19 U/L (10-30); GPT 10 U/L (10-36); SODIUM 145 mmol/L (136-145); TCO2 23 mmol/L (25-35); TOTAL BILIRUBIN 0.19 mg/dL (0.20-1.00); TOTAL PROTEIN 7.4 g/dL (6.3-8.3)
[2017-05-31 02:49] LABS: UR AMPHETAMINES QUAL NONE DETECTED (NONE DETECT); UR BARBITUATES QUAL PRESUMPTIVE POSITIVE (NONE DETECT); UR BENZODIAZEPIN QUAL PRESUMPTIVE POSITIVE (NONE DETECT); UR CANNABINOIDS QUAL NONE DETECTED (NONE DETECT); UR COCAINE QUAL NONE DETECTED (NONE DETECT); UR METHADONE QUAL NONE DETECTED (NONE DETECT); UR OPIATES QUAL PRESUMPTIVE POSITIVE (NONE DETECT); UR OXYCODONE QUAL NONE DETECTED (NONE DETECT); UR PCP QUAL NONE DETECTED (NONE DETECT)
[2017-05-31] MEDS ORDERED: NS 1,000 ML IV ONE ×2 (03:30→06:24)
--- NOTE | 2017-05-31 03:42 | PROVIDER DOCUMENTATION ---
This chart was entered by Alexa Laboy Scribe, acting as scribe for Konrad Ocampo Jr, MD. [id number] Abuse/Overdose - General Chief Complaint: Overdose Stated Complaint: possible overdose Time Seen by Provider: 05/31/17 01:19 Source: EMS Unable to obtain history due to:: urgency (unresponsive) Allergies/Adverse Reactions: Allergies Allergy/AdvReac Type Severity Reaction Status Date / Time codeine Allergy Mild ITCHING Verified 05/23/17 16:58 ketorolac tromethamine * Allergy Mild ITCHING Verified 05/23/17 16:58 [From Toradol] promethazine HCl * Allergy Mild ITCHING Verified 05/23/17 16:58 [From Phenergan] tramadol HCl * [From Ultram] Allergy Mild ITCHING Verified 05/23/17 16:58 Home Medications: Home Medication List Medication Instructions Recorded Confirmed Last Taken Type Alprazolam [Xanax] 0.5 mg PO Q8H #15 tablet 03/11/17 05/23/17 05/22/17 12:00 Rx ATORVAstatin [Lipitor] 40 mg PO QHS #30 tablet 05/29/17 Unknown Rx Clopidogrel [Plavix] 75 mg PO DAILY #30 tablet 05/29/17 Unknown Rx Hydrocodone/APAP 5 mg/325 mg 1 each PO Q4H PRN #30 tablet 05/29/17 Unknown Rx [[place]-5] Levofloxacin [Levaquin] 750 mg PO DAILY #5 tablet 05/31/17 Unknown Rx - History of Present Illness-Drug/Alcohol Nature of Presenting Problem: 47 year old F presents to the ED via EMS with a cc of a possible overdose. Per EMS, friends have been with pt for over 2 hours with her being responsive. PT was at first in a car until they moved her to the yard where EMS found her. Unsure of what pt took. Daughter told EMS that pt takes Xanax and [place]. Daughter could not produce the medications. PT had 2 mg of Narcan TAPER MACHINE via EMS. This episode of drinking or use began:: unsure Severity: reports: severe Review of Systems - Adult - REVIEW OF SYSTEMS - ADULT ROS:: unobtainable per condition Constitutional: reports: no symptoms reported Eyes: reports: no symptoms reported Ears, Nose, Mouth & Throat: reports: no symptoms reported Cardiovascular: reports: no symptoms reported Respiratory: reports: no symptoms reported Gastrointestinal: reports: no symptoms reported Genitourinary: reports: no symptoms reported Musculoskeletal: reports: no symptoms reported Integumentary: reports: no symptoms reported Neurological: reports: no symptoms reported Psychiatric: reports: no symptoms reported Endocrine: reports: no symptoms reported Hematologic/Lymphatic: reports: no symptoms reported Allergic/Immunologic: reports: no symptoms reported All Other Systems: Reviewed and Negative Past History - Adult - PAST MEDICAL HISTORY-ADULT Review of Records: reports: Nursing Assessment Review, Medications Reviewed Major Childhood Illnesses: reports: denies history Cardiovascular: reports: denies history Respiratory: reports: denies history Gastrointestinal: reports: denies history Obstetrical/Gynecological: reports: uterine/ovarian cancer Genitourinary: reports: denies history Musculoskeletal: reports: chronic pain, intervertebral disc disease Neurological: reports: denies history Psychiatric: reports: anxiety Endocrine/Immune: reports: denies history Other Conditions: reports: denies history - PRIOR SURGERIES/PROCEDURES Surgical/Procedure History: reports: hysterectomy, tonsillectomy - PRIOR HOSPITALIZATIONS Prior Hospitalizations: reports: none - IMMUNIZATION STATUS Childhood Immunizations: UTD, See Nurse Assessment Flu Vaccine: See Nurse Assessment - FAMILY HISTORY Family History: reviewed, not pertinent Physical Exam-General - PHYSICAL EXAM-ADULT Initial Vital Signs Reviewed: Yes - CONSTITUTIONAL General Appearance: other (responsive to painful stimuli) - EYES Eyes: PERRL/EOMI (3 mm) - RESPIRATORY Respiratory: lungs clear, normal breath sounds - CARDIOVASCULAR Cardiovascular: normal peripheral pulses, regular rate, rhythm, no edema - GASTROINTESTINAL (ABDOMEN) Abdominal Exam: soft, other (PT has lost control of bowels) - SKIN Integumentary: normal color, normal turgor, warm/dry Progress - PLAN OF CARE/RESULTS Progress/Plan/Lab Results: Vital Signs - 8 hr 05/31/17 01:34 05/31/17 02:00 Temperature 97.7 F Pulse Rate 62 59 L Respiratory Rate 13 17 Blood Pressure 110/51 105/68 O2 Sat by Pulse Oximetry 96 96 Laboratory Results - last 24 hr 05/31/17 05/31/17 05/31/17 01:33 01:33 01:33 WBC 9.63 RBC 4.33 Hgb 13.6 Hct 40.9 MCV 94.5 MCH 31.4 H MCHC 33.3 RDW Std Deviation 12.8 Plt Count 330 MPV 11.3 H Immature Gran % (Auto) 0.3 Neut % (Auto) 45.0 Lymph % (Auto) 40.5 Antelope % (Auto) 8.0 Eos % (Auto) 5.2 Baso % (Auto) 1.0 H Immature Gran # (Auto) 0.03 Neut # (Auto) 4.33 Lymph # (Auto) 3.90 H Antelope # (Auto) 0.77 H Eos # (Auto) 0.50 Baso # (Auto) 0.10 Sodium 145 Potassium 4.0 Chloride 105 Carbon Dioxide 23 L Anion Gap 17 BUN 12 Creatinine 0.8 Estimated GFR/1.73 m2 > 60 BUN/Creatinine Ratio 15 Glucose 83 Calculated Osmolality 288 Calcium 9.2 Total Bilirubin 0.19 L AST 19 ALT 10 Alkaline Phosphatase 69 Creatine Kinase 133 Total Protein 7.4 Albumin 4.2 Globulin 3.2 Albumin/Globulin Ratio 1.3 Salicylates 11.95 H Urine Opiates Screen Ur Oxycodone Screen Ur Methadone, Qual Acetaminophen < 1.2 L Ur Barbiturates Screen Ur Phencyclidine Scrn Ur Amphetamines Screen U Benzodiazepines Scrn Urine Cocaine Screen U Cannabinoids Screen Plasma/Serum Ethyl Alc 05/31/17 01:33 WBC RBC Hgb Hct MCV MCH MCHC RDW Std Deviation Plt Count MPV Immature Gran % (Auto) Neut % (Auto) Lymph % (Auto) Antelope % (Auto) Eos % (Auto) Baso % (Auto) Immature Gran # (Auto) Neut # (Auto) Lymph # (Auto) Antelope # (Auto) Eos # (Auto) Baso # (Auto) Sodium Potassium Chloride Carbon Dioxide Anion Gap BUN Creatinine Estimated GFR/1.73 m2 BUN/Creatinine Ratio Glucose Calculated Osmolality Calcium Total Bilirubin AST ALT Alkaline Phosphatase Creatine Kinase Total Protein Albumin Globulin Albumin/Globulin Ratio Salicylates Urine Opiates Screen PRESUMPTIVE POSITIVE A Ur Oxycodone Screen NONE DETECTED Ur Methadone, Qual NONE DETECTED Acetaminophen Ur Barbiturates Screen PRESUMPTIVE POSITIVE A Ur Phencyclidine Scrn NONE DETECTED Ur Amphetamines Screen NONE DETECTED U Benzodiazepines Scrn PRESUMPTIVE POSITIVE A Urine Cocaine Screen NONE DETECTED U Cannabinoids Screen NONE DETECTED Plasma/Serum Ethyl Alc Orders Category Date Time Status Cardiac Monitoring DIRECTED Care 05/31/17 01:23 Active Finger Stick Blood Sugar (ED) DIRECTED Care 05/31/17 01:23 Active Berry Cath Insertion ORDERED Care 05/31/17 01:24 Active Saline Loc DIRECTED Care 05/31/17 01:23 Active CHEST-PORTABLE [RAD] Stat Exams 05/31/17 01:32 Taken HEAD W/O CONTRAST [CT] Stat Exams 05/31/17 01:24 Taken ACETAMINOPHEN [TDM] Stat Lab 05/31/17 01:33 Completed ALCOHOL BLOOD Stat Lab 05/31/17 01:33 Completed CBC WITH ELECTRONIC DIFF [HEME] Stat Lab 05/31/17 01:33 Completed CK TOTAL [CHEM] Stat Lab 05/31/17 01:33 Completed COMPREHENSIVE METABOLIC PANEL [CHEM] Stat Lab 05/31/17 01:33 Completed SALICYLATES [TDM] Stat Lab 05/31/17 01:33 Completed URINE DRUG SCREEN Stat Lab 05/31/17 01:33 Completed 0.9% Sodium Chloride Inj [Ns] 1,000 ml Med 05/31/17 03:30 Active IV 999 mls/hr Naloxone [Narcan] Med 05/31/17 01:25 Discontinued 0.4 mg IV NOW ONE Pulse Oximetry Stat Oth 05/31/17 01:23 Active EKG [EKG] Stat Ther 05/31/17 01:22 Ordered EKG [EKG] Stat Ther 05/31/17 01:23 Ordered Result Diagrams: 05/31/17 01:33 05/31/17 01:33 - REASSESSMENT Reassessment #1 Time Reassessed: 03:40 Status: unchanged Reassessment Comment: stable - EKG 1 Time of EKG reading by physician:: 01:19 EKG Read and Signed by:: Konrad Ocampo Jr EKG Interpretation (*Must complete 3 of following elements*): Normal Rate: 60 Rhythm: NSR Lynn: normal - XRAY 1 XRAY Study: Chest Impression: Normal XRAY Interpretation: NAD - CT/MRI 1 CT Study: Head Impression: Normal CT Results: no acute findings: Dr. Shay(radiologist) - CONSULTS/PCP/HOSPITALIST Notification Time Discussed: 03:39 Consult Disposition: Will see in ED Departure - Departure Date of Disposition Decision: 05/31/17 Time of Disposition Decision: 03:38 DIAGNOSIS: Polysubstance abuse, Encephalopathy, toxic DIAGNOSIS: (Ruled Out): Dog bite, Laceration Disposition: ADMITTED INPATIENT 09 Certified Medical Emergency: Emergent Condition: Fair Additional Freetext Instructions: ED Follow Up Instructions: You have been treated by a care provider in the Emergency Department. These instructions are being provided to you so you can have an understanding of how to care for yourself upon discharge. Upon discharge from the Emergency Department, you are responsible for making arrangements for follow-up care by a physician of your choice. Take all prescribed medications as directed. Return to the Emergency Department immediately for any new or worsening symptoms. You may call the Physician Referral phone number at [phone] to obtain a list of Physicians who are taking new patients. Prescriptions: Levofloxacin [Levaquin] 750 mg PO DAILY #5 tablet Referrals and Follow-Ups: None,PCP [Primary Care Provider] - - Critical Care Note This patient required my direct & personal management of CC.: No Comments: Rx for Levaquin entered in error. Glascow Coma Score - Glascow Coma Score Best Eye Response (Nando): (2) open to pain Best Verbal Response ([place]): (2) incomprehsible sounds Best Motor Response ([place]): (4) withdraws to pain [place] Total: 8 GCS Comment: First assessment of pt on arrival This chart was documented by the indicated scribe, (Alexa Laboy Scribe) and accurately reflects the services I performed and decisions made by me, Konrad Ocampo Jr, MD, as attested by the provider's signature.
[2017-05-31] MEDS: NS 1,000 ML IV SCH ×2 (05:27→21:18)
[2017-05-31] MEDS ORDERED: NS 500 ML IV ONE (05:36)
[2017-05-31] MEDS ORDERED: TYLENOL PO PRN (06:24)
[2017-05-31] MEDS ORDERED: ZOFRAN IV PRN (06:24)
--- NOTE | 2017-05-31 07:31 | Diag Imaging Result Doc PS360 ---
EXAM: HEAD W/O CONTRAST HISTORY: AMS TECHNIQUE: CT of the head without contrast with dose reduction (clarity.) COMMENT: There is no evidence of mass effect bleed or abnormal extra-axial fluid collection. There is persistent metopic suture. There is no evidence of fracture or other acute bony abnormality. Compared to the previous examination of 05/23/2017 the abnormal lucency present in the occipital lobe on the right has nearly completely resolved. There is a small area of encephalomalacia in the occipital cortex remaining. IMPRESSION: No evidence of acute intracranial disease. Chronic ischemic changes in the right occipital lobe. Electronically signed by Justice Enciso 05/31/2017 7:29 AM
--- NOTE | 2017-05-31 07:33 | Diag Imaging Result Doc PS360 ---
EXAM: CHEST-PORTABLE HISTORY: evaluation for aspiration TECHNIQUE: AP portable at 0140 COMMENT: The inspiration is much less optimal than on 03/09/2017. Considering this, there has been no appreciable change. IMPRESSION: Stable chest. Electronically signed by Justice Enciso 05/31/2017 7:31 AM
[2017-05-31] MEDS ORDERED: ASPIRIN PR SCH (09:00)
--- NOTE | 2017-05-31 09:45 | HISTORY AND PHYSICAL ---
CHIEF COMPLAINT: Altered mentation. HISTORY OF PRESENT ILLNESS: Briefly, this is a 47-year-old female, who was just discharged for an occipital stroke on the , who presents with confusion and lethargy. She came in initially on the with right arm weakness, visual disturbance. She was diagnosed with occipital infarct and was discharged on the in the evening on Lipitor, Plavix, [place] and Xanax. She had a posterior cerebral artery occlusion. ARLEY showed small patent foramen ovale. She does use Goody powders. According to the , she was depressed because she felt like she was not getting any better. The last time she was seen awake was around 5:00-5:45. She was first in her car and then moved to the yard where EMS found her. Uncertain what patient took. She is on Xanax and Hamilton at baseline. She was given some Narcan and did have some response to that. Other workup in the ER was unremarkable, including her repeat head CT. is concerned that she may have tried to hurt herself. She does have a history of hurting herself previously, although currently not on any medications for depression. She has a nonfocal exam. However, patient is minimally responsive. PAST MEDICAL HISTORY: 1. Again, recent CVA. 2. PFO which was recently diagnosed. 3. History of ovarian cancer. 4. Hypertension. 5. Crohn disease. 6. Chronic back and neck pain. PAST SURGICAL HISTORY: Hysterectomy and tonsillectomy, polypectomy. ALLERGIES: To codeine, Toradol, Phenergan and Ultram. SOCIAL HISTORY: She still smokes a half pack to a pack a day, she has been doing that for a while, probably close to 20 years. MEDICATIONS: Currently she is on Xanax, Lipitor, Plavix, [place] and then possibly Levaquin. REVIEW OF SYSTEMS: Negative x10 point review of systems except as outlined. PHYSICAL EXAMINATION: VITAL SIGNS: Blood pressure was 72/51, heart rate 60, respiratory rate 13, temperature 97.7, 95% on room air. GENERALLY: Minimally responsive patient. Normocephalic, atraumatic. HEENT: Pupils equal, round, reactive to light. Were not fixed, were not pinpoint. ENT: Dry mucous membranes. NECK: Supple. CARDIOVASCULAR EXAM: Regular rate and rhythm. PULMONARY: Bilateral breath sounds. Clear to auscultation. GASTROINTESTINAL: Soft, nontender, nondistended. Bowel sounds are positive. EXTREMITIES: No clubbing or cyanosis. LYMPHATICS: No peripheral edema. NEUROLOGICAL: Nonfocal, but limited because of patient's mental state. She did rouse when asked questions and opened eyes, but did not follow any purposeful commands. She was able to move spontaneously her extremities upper and lower. LABORATORY DATA: Really unremarkable. Head CT unremarkable. ASSESSMENT: A 47-year-old female with recent cerebrovascular accident, who presents with encephalopathy, presumably toxic from medications. 1. Toxic encephalopathy. We will continue to monitor. Confounding issue was of course the recent cerebrovascular accident. If she has persistence in her altered mentation, may need to repeat imaging or pursue MRI. We will continue supportive care in the meantime. 2. Transient hypotension. We will continue supportive care, bolus and otherwise and see how she does. 3. Psychiatric. There possibly is component of depression related to her stroke. She may need psychiatric evaluation depending on her clinical course once she is able to be questioned further about her state. cc: Darci Calhoun MD Primary Care physician MD Tanvi Villeda III, MD
[2017-06-01 03:53] LABS: URINE CULTURE NEEDED? NO; URINE MICRO REVIEW NEEDED? NO; URINE SOURCE CATH
[2017-06-01 03:55] LABS: BILIRUBIN URINE NEGATIVE (NEGATIVE); BLOOD URINE NEGATIVE (NEGATIVE); COLOR YELLOW; GLUCOSE URINE NEGATIVE (NEGATIVE); LEUKOCYTES URINE NEGATIVE (NEGATIVE); NITRITE URINE NEGATIVE (NEGATIVE); PH URINE 5.5; PROTEIN URINE NEGATIVE (NEGATIVE); TURBIDITY URINE CLEAR (CLEAR); UROBILINOGEN URINE NORMAL (NORMAL)
[2017-06-01 03:56] LABS: UR EPITHELIAL CELLS <10 /HPF (<10); URINE BACTERIA NEGATIVE /HPF; URINE RBC <10 /HPF (<10); URINE WBC <10 /HPF (<10)
[2017-06-01] MEDS: NS 1,000 ML IV SCH (05:41)
[2017-06-01 05:58] LABS: HEMATOCRIT 38.2 % (37.0-47.0); HEMOGLOBIN 12.1 g/dL (12.0-16.0); MCH 31.1 PG (27-31); MCHC 31.7 g/dL (33-37); MCV 98.2 FL (81-99); MPV 11.5 FL (7.4-10.4); RBC 3.89 XMIL (4.2-5.4)
[2017-06-01 06:18] LABS: AGAP 6; BUN 11 mg/dL (8-22); CALCIUM 8.3 mg/dL (8.8-10.2); CHLORIDE 113 mmol/L (98-107); COSMO 282; POTASSIUM 3.9 mmol/L (3.5-5.1); SODIUM 142 mmol/L (136-145); TCO2 23 mmol/L (25-35)
[2017-06-01] MEDS: PLAVIX PO SCH (09:57)
[2017-06-01] MEDS: XANAX PO SCH ×2 (14:31→21:58)
--- NOTE | 2017-06-01 17:18 | PROGRESS NOTE ---
DATE: 06/01/2017 SUBJECTIVE: The patient is awake and alert today. She states that she does not remember what she took but she denies trying to harm herself. OBJECTIVE: Vital Signs: Temperature 98.5 degrees, blood pressure 132/71, heart rate 55, respirations 16, O2 saturations 100% on room air. General: This is a middle-aged female lying in bed in no acute distress. Head: Normocephalic, atraumatic. Heart: S1, S2. Normal. Bradycardic. Lungs: Clear to auscultation bilaterally. No wheezing. No rales. No rhonchi. Abdomen: Positive bowel sounds. Soft, nontender, nondistended. Extremities: No edema. No cyanosis. No calf tenderness. LABS: White blood cell count 9.8, hemoglobin 12, hematocrit 38, platelets 300,000. Sodium 142, potassium 3.9, chloride 113, CO2 28, BUN 11, creatinine 0.5, glucose 97. ASSESSMENT AND PLAN: 1. Toxic encephalopathy. I suspect that the patient took too much of her medications. Her drug toxicology screen was positive for opiates, barbiturates and benzodiazepines. The patient stated that she was not trying to harm herself. The patient appears to be back to baseline. 2. Recent right occipital lobe stroke. Continue on Plavix and Lipitor. 3. Patent foramen ovale. Aware. 4. Chronic headache. Aware. 5. Anxiety disorder. Continue on Xanax. 6. Chronic back pain. Continue on p.r.n. Rosman. 7. Disposition. The patient should be stable for discharge home tomorrow. cc: Krissy Black MD
[2017-06-01] MEDS: NORCO-5 PO PRN (18:37)
[2017-06-01] MEDS ORDERED: LIPITOR PO SCH (21:00)
[2017-06-02] MEDS: NORCO-5 PO PRN ×2 (00:28→09:37)
[2017-06-02] MEDS: XANAX PO SCH ×2 (04:58→09:45)
--- NOTE | 2017-06-02 05:56 | EKG Report ---
Test Performed on : 05/31/2017 01:19:39 AM Test Reason : ReOrdered/OD Blood Pressure : / mmHG Vent. Rate : 060 BPM Atrial Rate : 060 BPM P-R Int : 150 ms QRS Dur : 096 ms QT Int : 414 ms P-R-T Axes : 032 019 051 degrees QTc Int : 414 ms Normal sinus rhythm. Normal ECG When compared with ECG of 28-MAY-2017 07:19, No significant change was found Unconfirmed Result
[2017-06-02 06:58] LABS: AGAP 10; BUN 6 mg/dL (8-22); CALCIUM 8.6 mg/dL (8.8-10.2); CHLORIDE 109 mmol/L (98-107); COSMO 284; POTASSIUM 3.7 mmol/L (3.5-5.1); SODIUM 144 mmol/L (136-145); TCO2 25 mmol/L (25-35)
[2017-06-02] MEDS ORDERED: NORVASC PO SCH (09:00)
[2017-06-02] MEDS: PLAVIX PO SCH (09:36)
[2017-06-02 09:53] VITALS: BP 144/75
--- NOTE | 2017-06-02 21:31 | DISCHARGE SUMMARY ---
ADMISSION DATE: 05/31/2017 DISCHARGE DATE: 06/02/2017 FINAL DISCHARGE DIAGNOSES: 1. Toxic encephalopathy. 2. Right occipital infarct. 3. Hypertension. 4. Anxiety disorder. 5. Chronic back pain. 6. Chronic headaches. 7. Patent foramen ovale. HOSPITAL COURSE: Ms. Langford is a 47-year-old female with multiple medical problems who was brought to the ER after the patient was found minimally responsive at home. Upon arrival a drug toxicology screen was done that came back positive for opiates, benzodiazepines and barbiturates. The patient was hydrated with IV fluids and slowly the patient returned to her baseline level of function. The patient states that she does not remember what she took. She states that as far as she know she took her medications as prescribed. The patient continued to improve clinically and was discharged home on 06/02/2017. DISCHARGE MEDICATIONS: 1. Norvasc 5 mg p.o. daily. 2. Xanax 0.5 mg p.o. every 8 hours. 3. Lipitor 40 mg p.o. at bedtime. 4. Plavix 75 mg p.o. daily. 5. [employer] 5/325, 1 tab oral every 4 hours p.r.n. for pain. DISCHARGE DIET: Low-sodium, low-cholesterol diet. ACTIVITY: As tolerated. FOLLOWUP INSTRUCTIONS: 1. The patient has been advised to follow up with Dr. Govea in the next several weeks to arrange for a sleep study. 2. The patient will also need to follow up with Dr. Campbell in 2-3 weeks. 3. The patient will need to follow up with Dr. Nacho tamayo for a Pap smear. cc: Krissy Black MD
== END 2017-06-02 11:35 | disposition home or self-care (01) ==
LOC: ED 01:19 → SUATTDRO 03:51 → EDIPHOLD 03:51 → 4N 18:43
PROVIDERS: ATTEND Internal Medicine